=== PATIENT | male | born 1960 | race Caucasian/White ===

== ENCOUNTER 2022-03-03 20:14 | Inpatient (IN) | payer OTHER, SELFPAY ==
[2022-03-03 20:18] VITALS: BP 179/129; PULSE 88; RESP 16; TEMP 36.4; O2SAT 98; BMI 20.7
--- NOTE | 2022-03-03 21:00 | ED.C_ITS ---
Documented by User: Cameron Restrepo DO 03/03/22 22:48 HPI - Psych General: Chief Complaint: Psychiatric Symptoms Stated Complaint: SI Time Seen by Provider: 03/03/22 20:28 Source: patient Mode of arrival: ambulatory Limitations: no limitations History of Present Illness: History of DIPThis patient has made his way to the emergency department because he has had suicidal thoughts. He states that pression and has had suicidal thoughts in the past. 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 He is now had time to do so and has states he has been feeling more sad and uncertain about his role in life and has had thoughts of drowning himself in the bathtub. He does admit to me that he drinks alcohol on a daily basis and his last drink was approximately 4 to 5 hours ago. He states he usually drinks beer. He apparently uses recreational marijuana from time to time. He desires help. MD complaint: suicidal ideation and feels depressed History of same: Yes Context: recent alcohol abuse Associated symptoms: Reports depression and suicidal ideation; Deny auditory hallucinations or visual hallucinations Review of Systems Const: Denies: fever(s) or chills Eyes: Denies: change in vision or blurry vision ENMT: Denies: throat pain, odynophagia, nasal discharge or nasal congestion Card: Denies: chest pain, palpitations or irregular heart rhythm Resp: Denies: productive cough or non-productive cough GI: Denies: abdominal pain, nausea or vomiting : Denies: flank pain, difficulty urinating, dysuria or urinary frequency Musc: Denies: neck pain, back pain, extremity pain or extremity swelling Skin/Breast: Denies: rash Neuro: Denies: headache(s), numbness in extremities or weakness in extremities Psych: Reports: anxiety, depression, loss of interest, change in appetite and suicidal ideation; Denies: visual hallucinations or auditory hallucinations Physical Exam Narrative: EXAM NARRATIVE: Makes good eye contact. Will answer questions in a goal-directed fashion but occasionally needs redirection. Const: COMMON NORMALS: no acute distress, average body habitus, patient oriented x3 and alert GENERAL APPEARANCE: cooperative HENMT: COMMON NORMALS: normocephalic, Normal nasal mucous membranes and turbinates present, moist oral mucous membranes and oropharynx normal HEAD & SCALP: normocephalic NOSE: Normal nasal mucous membranes and turbinates present Eye: COMMON NORMALS: Equal, round and reactive pupils present, EOMs intact bilaterally and conjunctivae normal CONJUNCTIVA: Yes conjunctivae normal PUPIL: Yes Equal, round and reactive pupils present Neck/C-Spine: COMMON NORMALS: full ROM, no JVD and No carotid bruits Chest: COMMONS NORMALS: normal inspection of the chest Resp: COMMON NORMALS: normal respiratory effort, No use of accessory muscles and clear to auscultation bilaterally AUSCULTATION: clear to auscultation bilaterally Cardio: COMMON NORMALS: no JVD, regular rhythm and Peripheral pulses 2+ throughout RHYTHM: regular rhythm PERIPHERAL PULSES: Peripheral pulses 2+ throughout GI: COMMON NORMALS: Normal to inspection, nondistended, normoactive bowel sounds present, Soft to palpation, non-tender and No hepatosplenomegaly present PALPATION: Yes Soft to palpation and Yes No hepatosplenomegaly present : COMMON NORMALS: Yes no CVA tenderness BLADDER/KIDNEY EXAM: Yes no CVA tenderness Back/Pelvis: COMMON NORMALS: no CVA tenderness, thoracic and lumbar spine normal to inspection and thoraco-lumbar ROM normal Extremity: COMMON NORMALS: normal to inspection, full ROM, no calf tenderness and no pedal edema Neuro: COMMON NORMALS: patient oriented x3, moves all extremities, no focal motor deficits and no sensory deficits noted SENSORIUM/ORIENTATION: Yes alert CRANIAL NERVES: Yes CN normal except as noted Psych: COMMON NORMALS: mental status grossly normal, Normal thought process present and speech normal ATTITUDE: Yes calm SPEECH: Yes normal speech MOOD & AFFECT: Yes depressed mood and Yes Flat affect present THOUGHT PROCESS: Normal thought process present THOUGHT CONTENT: Yes Suicidality present ATTENTION/CONCENTRATION: Yes attention grossly intact INSIGHT: Fair insight present (Psych) JUDGEMENT: Fair judgement present (Psych) Skin: COMMON NORMALS: no rashes or lesions noted and no wounds GENERAL SKIN EXAM: no rashes or lesions noted Course Reevaluation(s): Reevaluation #1: Patient remains clinically stable. He seems to be calm without any evidence of shakes, tachycardia etc. particularly after the 50 mg of Librium. I discussed the fact that we do not have bed availability at this facility will have to make arrangements for transfer if possible. He voiced understanding. He remains willing to be admitted for treatment. 's care will be turned over to the overnight emergency department department physician for disposition of possible or continuation of care until we are able to make a transfer. Time: 22:47 Vital Signs: Vital signs: Vital Signs Temperature 97.6 F 03/03/22 20:18 Pulse Rate 88 03/03/22 20:18 Respiratory Rate 16 03/03/22 20:18 Blood Pressure 179/129 03/03/22 20:18 Pulse Oximetry 98 03/03/22 20:18 Oxygen Delivery Me thod 03/03/22 20:18 MDM - Psych Medical Decision Making Patient with a history of depression who presented to our emergency department because he has had suicidal thoughts recently. He has expressed plan of potentially drowning himself in the bathtub. He is here seeking help voluntarily. He does admit to daily alcohol use as well and last drank alcohol several hours prior to arrival. His clinical examination revealed him to have a flat affect and depressed mood with uncertain suicidality but has voiced specific plans. Currently clinically stable. He does have laboratory values which 1 would expect from chronic alcohol use but is not clinically or biochemically intoxicated at this time. Because of his current presentation I think is warranted that he be placed in mental health facility for further evaluation and treatment as indicated. He has denied to me history of DTs, seizures etc. He has been given Librium in the emergency department to help quell some of his symptoms potential withdrawal symptoms. Lab Data I reviewed the patient's lab results. 03/03/22 20:20 03/03/22 20:20 Laboratory Results WBC 10.1 10^3/uL (4.0-10.0) H 03/03/22 20:20 RBC 5.26 10^6/uL (4.1-5.3) 03/03/22 20:20 Hgb 16.4 g/dL (11.7-16.6) 03/03/22 20:20 Hct 48.2 % (42.0-52.0) 03/03/22 20:20 MCV 91.6 fl (80-94) 03/03/22 20:20 MCH 31.2 pg (28.0-34.0) 03/03/22 20:20 MCHC 34.0 g/dL (30.0-36.0) 03/03/22 20:20 RDW 14.2 % (12.1-15.1) 03/03/22 20:20 Plt Count 200 10^3/cmm (130-400) 03/03/22 20:20 MPV 10.1 fL (7.4-10.4) 03/03/22 20:20 Neut % (Auto) 58.3 % 03/03/22 20:20 Lymph % (Auto) 18.6 % 03/03/22 20:20 [place] % (Auto) 16.3 % 03/03/22 20:20 Eos % (Auto) 4.6 % 03/03/22 20:20 Baso % (Auto) 1.3 % 03/03/22 20:20 Neut # (Auto) 5.89 10^3/uL (1.8-7.7) 03/03/22 20:20 Lymph # (Auto) 1.9 10^3/uL (0.8-4.8) 03/03/22 20:20 [place] # (Auto) 1.7 10^3/uL (0.2-0.9) H 03/03/22 20:20 Eos # (Auto) 0.5 10^3/uL (0.0-0.8) 03/03/22 20:20 Baso # (Auto) 0.1 10^3/uL (0.0-0.1) 03/03/22 20:20 Nucleated RBC % (auto) 0 % 03/03/22 20:20 Nucleated RBCs # 0.0 /100WBC 03/03/22 20:20 Sodium 129 mmol/L (136-145) L 03/03/22 20:20 Potassium 4.0 mmol/L (3.5-5.1) 03/03/22 20:20 Chloride 91 mmol/L (98-107) L 03/03/22 20:20 Carbon Dioxide 21 mmol/L (22-29) L 03/03/22 20:20 Anion Gap 21.0 (5-19) H 03/03/22 20:20 BUN 3 mg/dL (8-23) L 03/03/22 20:20 Creatinine 0.7 mg/dL (0.7-1.2) 03/03/22 20:20 GFR Calculation 113.9 mL/min (90-130) 03/03/22 20:20 Glucose 91 mg/dL (65-115) 03/03/22 20:20 Calculated Osmolality 264 mOsm/kg (285-295) L 03/03/22 20:20 Calcium 10.1 mg/dL (8.5-10.5) 03/03/22 20:20 Total Bilirubin 0.8 mg/dL (0.15-1.2) 03/03/22 20:20 AST 156 U/L (0-40) H 03/03/22 20:20 ALT 145 U/L (0-41) H 03/03/22 20:20 Alkaline Phosphatase 80 U/L (40-130) 03/03/22 20:20 Total Protein 8.4 g/dL (6.6-8.7) 03/03/22 20:20 Albumin 4.8 g/dL (3.5-5.2) 03/03/22 20:20 Globulin 3.6 g/dL (1.3-4.6) 03/03/22 20:20 Salicylates < 0.3 mg/dL (3-10) L 03/03/22 20:20 Acetaminophen < 5.0 ug/mL (10-30) L 03/03/22 20:20 Ethyl Alcohol 25 mg/dL (0-10) H 03/03/22 20:20 Influenza Type A Ag negative (Negative) 03/03/22 22:47 Influenza Type B Ag negative (Negative) 03/03/22 22:47 SARS-CoV-2 Ag (Rapid) Negative (Negative) 03/03/22 22:47 Discharge Plan Discharge Patient Disposition: Admitted As Inpatient Clinical Impression: Suicidal ideation, Depression, Chronic alcohol use Condition: Stable Referrals: Jorden Cloud [Primary Care Provider] - Coding Level of Care Code ED Cryptozoologist for Chg Fwd Exam Comprehensive Documented by User: Maria Antonia Schulte MD 03/04/22 04:41 HPI - Psych General: Chief Complaint: Psychiatric Symptoms Stated Complaint: SI Time Seen by Provider: 03/03/22 20:28 Course Vital Signs: Vital signs: Vital Signs Temperature 97.6 F 03/03/22 20:18 Pulse Rate 88 03/03/22 20:18 Respiratory Rate 16 03/03/22 20:18 Blood Pressure 179/129 03/03/22 20:18 Pulse Oximetry 98 03/03/22 20:18 Oxygen Delivery Me thod 03/03/22 20:18 MDM - Psych Medical Decision Making Patient with a history of depression who presented to our emergency department because he has had suicidal thoughts recently. He has expressed plan of potentially drowning himself in the bathtub. He is here seeking help voluntarily. He does admit to daily alcohol use as well and last drank alcohol several hours prior to arrival. His clinical examination revealed him to have a flat affect and depressed mood with uncertain suicidality but has voiced specific plans. Currently clinically stable. He does have laboratory values which 1 would expect from chronic alcohol use but is not clinically or biochemically intoxicated at this time. Because of his current presentation I think is warranted that he be placed in mental health facility for further evaluation and treatment as indicated. He has denied to me history of DTs, seizures etc. He has been given Librium in the emergency department to help quell some of his symptoms potential withdrawal symptoms. Patient presents for suicidal ideations he is medically cleared he had no withdrawal symptoms here I did speak to Dr. Mcdonald and will admit at this time to the psych unit. Lab Data 03/03/22 20:20 03/03/22 20:20 Laboratory Results WBC 10.1 10^3/uL (4.0-10.0) H 03/03/22 20:20 RBC 5.26 10^6/uL (4.1-5.3) 03/03/22 20:20 Hgb 16.4 g/dL (11.7-16.6) 03/03/22 20:20 Hct 48.2 % (42.0-52.0) 03/03/22 20:20 MCV 91.6 fl (80-94) 03/03/22 20:20 MCH 31.2 pg (28.0-34.0) 03/03/22 20:20 MCHC 34.0 g/dL (30.0-36.0) 03/03/22 20:20 RDW 14.2 % (12.1-15.1) 03/03/22 20:20 Plt Count 200 10^3/cmm (130-400) 03/03/22 20:20 MPV 10.1 fL (7.4-10.4) 03/03/22 20:20 Neut % (Auto) 58.3 % 03/03/22 20:20 Lymph % (Auto) 18.6 % 03/03/22 20:20 [place] % (Auto) 16.3 % 03/03/22 20:20 Eos % (Auto) 4.6 % 03/03/22 20:20 Baso % (Auto) 1.3 % 03/03/22 20:20 Neut # (Auto) 5.89 10^3/uL (1.8-7.7) 03/03/22 20:20 Lymph # (Auto) 1.9 10^3/uL (0.8-4.8) 03/03/22 20:20 [place] # (Auto) 1.7 10^3/uL (0.2-0.9) H 03/03/22 20:20 Eos # (Auto) 0.5 10^3/uL (0.0-0.8) 03/03/22 20:20 Baso # (Auto) 0.1 10^3/uL (0.0-0.1) 03/03/22 20:20 Nucleated RBC % (auto) 0 % 03/03/22 20:20 Nucleated RBCs # 0.0 /100WBC 03/03/22 20:20 Sodium 129 mmol/L (136-145) L 03/03/22 20:20 Potassium 4.0 mmol/L (3.5-5.1) 03/03/22 20:20 Chloride 91 mmol/L (98-107) L 03/03/22 20:20 Carbon Dioxide 21 mmol/L (22-29) L 03/03/22 20:20 Anion Gap 21.0 (5-19) H 03/03/22 20:20 BUN 3 mg/dL (8-23) L 03/03/22 20:20 Creatinine 0.7 mg/dL (0.7-1.2) 03/03/22 20:20 GFR Calculation 113.9 mL/min (90-130) 03/03/22 20:20 Glucose 91 mg/dL (65-115) 03/03/22 20:20 Calculated Osmolality 264 mOsm/kg (285-295) L 03/03/22 20:20 Calcium 10.1 mg/dL (8.5-10.5) 03/03/22 20:20 Total Bilirubin 0.8 mg/dL (0.15-1.2) 03/03/22 20:20 AST 156 U/L (0-40) H 03/03/22 20:20 ALT 145 U/L (0-41) H 03/03/22 20:20 Alkaline Phosphatase 80 U/L (40-130) 03/03/22 20:20 Total Protein 8.4 g/dL (6.6-8.7) 03/03/22 20:20 Albumin 4.8 g/dL (3.5-5.2) 03/03/22 20:20 Globulin 3.6 g/dL (1.3-4.6) 03/03/22 20:20 Salicylates < 0.3 mg/dL (3-10) L 03/03/22 20:20 Acetaminophen < 5.0 ug/mL (10-30) L 03/03/22 20:20 Ethyl Alcohol 25 mg/dL (0-10) H 03/03/22 20:20 Influenza Type A Ag negative (Negative) 03/03/22 22:47 Influenza Type B Ag negative (Negative) 03/03/22 22:47 SARS-CoV-2 Ag (Rapid) Negative (Negative) 03/03/22 22:47 Discharge Plan Discharge Patient Disposition: Admitted As Inpatient Clinical Impression: Suicidal ideation, Depression, Chronic alcohol use Condition: Stable Referrals: Jorden Cloud [Primary Care Provider] - Coding Level of Care Code ED Cryptozoologist for [place] Fwd Exam Comprehensive
[2022-03-03] MEDS: chlordiazePOXIDE 25 mg Capsule 50 MG PO (21:07)
--- NOTE | 2022-03-03 21:07 | ECG_ITS ---
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 Measurements Intervals [place] Rate: 79 P: 84 ME: 163 QRS: 75 QRSD: 87 T: 78 QT: 374 QTc: 430 Interpretive Statements SINUS RHYTHM Compared to ECG 09/10/2016 14:08:34 No significant changes Electronically Signed On 03-04-2022 13:14:21 FINAL EXPENSE AGENT by Gretchen Valdez M.D. [id number]
[2022-03-03 21:08] LABS: Basophils # 0.1 10^3/uL (0.0-0.1); Basophils % 1.3 %; Eosinophils # 0.5 10^3/uL (0.0-0.8); Eosinophils % 4.6 %; Hematocrit 48.2 % (42.0-52.0); Hemoglobin 16.4 g/dL (11.7-16.6); Lymphocytes # 1.9 10^3/uL (0.8-4.8); Lymphocytes % 18.6 %; Mean Corpuscular Hemoglobin 31.2 pg (28.0-34.0); Mean Corpuscular Volume 91.6 fl (80-94); Mean Platelet Volume 10.1 fL (7.4-10.4); Monocytes # 1.7 10^3/uL (0.2-0.9); Monocytes % 16.3 %; Neutrophils # 5.89 10^3/uL (1.8-7.7); Neutrophils % 58.3 %; Nucleated Red Blood Cells % 0 %; Platelet Count 200 10^3/cmm (130-400); Red Blood Count 5.26 10^6/uL (4.1-5.3); Red Cell Distribution Width 14.2 % (12.1-15.1); White Blood Count 10.1 10^3/uL (4.0-10.0)
[2022-03-03 21:18] LABS: Alanine Aminotransferase 145 U/L (0-41); Albumin Level 4.8 g/dL (3.5-5.2); Alcohol Level 25 mg/dL (0-10); Alkaline Phosphatase 80 U/L (40-130); Aspartate Amino Transferase 156 U/L (0-40); Blood Urea Nitrogen 3 mg/dL (8-23); Calcium 10.1 mg/dL (8.5-10.5); Carbon Dioxide 21 mmol/L (22-29); Chloride 91 mmol/L (98-107); Creatinine Clr Calc Pharmacy 103.6157; Globulin 3.6 g/dL (1.3-4.6); Glomerular Filtration Rate 113.9 mL/min (90-130); Glucose 91 mg/dL (65-115); Osmolality Calculated 264 mOsm/kg (285-295); Sodium 129 mmol/L (136-145); Total Bilirubin 0.8 mg/dL (0.15-1.2); Total Protein 8.4 g/dL (6.6-8.7)
[2022-03-03 21:19] LABS: Acetaminophen < 5.0 ug/mL (10-30); Salicylate < 0.3 mg/dL (3-10)
[2022-03-03 23:10] LABS: Influenza A by IFA negative (Negative); Influenza B by IFA negative (Negative)
[2022-03-03 23:40] LABS: SARS Covid-2 Antigen Negative (Negative)
[2022-03-04] MEDS: LORazepam 2 mg Tablet PO ×3 (04:50→21:10)
[2022-03-04 04:53] VITALS: BP 152/96; PULSE 86; RESP 16; O2SAT 97
--- NOTE | 2022-03-04 06:54 | PC.NURSE ---
Per Liliana Brush they cannot accept for at least 72 hours due to pt hx of alcoholism and potential for detox issues
[2022-03-04] MEDS: thiamine 100 mg Tablet PO (08:36)
[2022-03-04] MEDS: multivitamin therapeutic Tablet 1 TAB PO (08:36)
[2022-03-04] MEDS: folic acid 1 mg Tablet PO (08:37)
[2022-03-04 08:39] VITALS: PULSE 111; RESP 16; O2SAT 99
--- NOTE | 2022-03-04 10:09 | PC.PHAR ---
PT NOT SURE OF ALL HIS MEDICATIONS- MEDICATIONS VERIF[facility]- ALLERGIES AL[facility]
[2022-03-04 11:57] VITALS: BP 144/113; PULSE 115; RESP 16; TEMP 36.8; O2SAT 98
[2022-03-04 13:45] VITALS: BP 144/113; PULSE 115; RESP 16; TEMP 36.8; O2SAT 98
[2022-03-04 20:05] VITALS: BP 129/80; PULSE 124; RESP 19; TEMP 36.7; O2SAT 97
[2022-03-05 06:00] VITALS: RESP 17
[2022-03-05] MEDS: BuSPIRONE 10 mg Tablet 30 MG PO ×2 (08:52→18:32)
[2022-03-05] MEDS: pantoprazole DR 40 mg Tablet PO (08:52)
[2022-03-05] MEDS: thiamine 100 mg Tablet PO (08:52)
[2022-03-05] MEDS: venlafaxine ER (24HR) 150 mg Capsule PO (08:52)
[2022-03-05] MEDS: propranolol 40 mg Tablet 120 MG PO ×2 (08:53→18:32)
[2022-03-05] MEDS: cetirizine 10 mg Tablet PO (08:53)
[2022-03-05] MEDS: fluticasone nasal spray 16gm Btl 1 SPRAY NASAL (08:53)
[2022-03-05] MEDS: multivitamin therapeutic Tablet 1 TAB PO (08:53)
[2022-03-05] MEDS: folic acid 1 mg Tablet PO (08:53)
[2022-03-05] MEDS: ondansetron 4 MG Tablet PO (08:55)
[2022-03-05] MEDS: LORazepam 2 mg Tablet PO ×2 (08:55→20:53)
[2022-03-05] MEDS: calcium carb-vit d 600mg/400unit 1 Tablet 1 EACH PO (09:22)
[2022-03-05] MEDS: nicotine 21 mg Patch 1 PATCH TRANSDERMA ×2 (09:32→13:22)
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
--- NOTE | 2022-03-05 13:23 | PC.NURSE ---
PRN Nicotine Patch 21mg Nicotine patch administered a second time today due to the first falling off of patient's arm. Placed on opposite arm.
[2022-03-05 14:00] VITALS: BP 128/80; PULSE 81; RESP 17; TEMP 37; O2SAT 96
[2022-03-05 21:25] VITALS: BP 124/87; PULSE 85; RESP 18; TEMP 36.8; O2SAT 98
[2022-03-06] MEDS: LORazepam 2 mg/mL INJ 1 mL IM (00:18)
[2022-03-06] MEDS: acetaminophen 325 mg Tablet 650 MG PO (00:18)
[2022-03-06] MEDS: ondansetron 4 MG Tablet PO ×4 (00:18→23:52)
--- NOTE | 2022-03-06 00:21 | PC.NURSE ---
Patient in obvious ETOH withdraw Very anxious and fearful. CIWA score of 23 conservatively. 2mg IM Ativan given.
[2022-03-06 06:00] VITALS: RESP 18; BMI 20.7
[2022-03-06] MEDS: folic acid 1 mg Tablet PO (08:56)
[2022-03-06] MEDS: calcium carb-vit d 600mg/400unit 1 Tablet 1 EACH PO (08:56)
[2022-03-06] MEDS: cetirizine 10 mg Tablet PO (08:56)
[2022-03-06] MEDS: BuSPIRONE 10 mg Tablet 30 MG PO ×2 (08:56→18:44)
[2022-03-06] MEDS: venlafaxine ER (24HR) 150 mg Capsule PO (08:57)
[2022-03-06] MEDS: propranolol 40 mg Tablet 120 MG PO ×2 (08:57→18:44)
[2022-03-06] MEDS: multivitamin therapeutic Tablet 1 TAB PO (08:57)
[2022-03-06] MEDS: pantoprazole DR 40 mg Tablet PO (08:57)
[2022-03-06] MEDS: thiamine 100 mg Tablet PO (08:57)
[2022-03-06] MEDS: LORazepam 2 mg Tablet PO ×4 (08:58→23:52)
--- NOTE | 2022-03-06 09:03 | PC.NURSE ---
PRN Churn Driller Patient approaching nurses' station obviously distraught. Patient sweating, shaking, voice breaking when he's talking, and stating he has almost vomited this morning and can't eat any food. Patient given 2 mg ativan PO and 4 mg zofran PO.
--- NOTE | 2022-03-06 13:15 | W.PM.NPUPNS ---
Subjective NPU Subjective: Patient presented today reporting that he is feeling nauseous. He reports that this nausea has been present for the past 3 months or so. We discussed his aftercare. He reports that [facility] is not [facility] to the [facility] though he is [facility] connected, reporting that that will not help because they will not give me anything. We once again reviewed the fact that with his alcohol consumption getting someone to consider prescribing a benzodiazepine to a 61-year-old is very unlikely and not clinically appropriate. He reports that he does feel like he has detoxed during the stay and is feeling a little more stable. He continues to be resistant to alternative medications that are not in the benzodiazepine class. Mental Status Exam MSE Comments: This is a well nourished, well developed white male in hospital scrubs with limited grooming and eye contact. No abnormal movements except for psychomotor retardation. Looking older than stated age. Cooperative with exam in mild to moderate distress. Speech was slightly decreased rate and normal volume. Mood described as okay, affect is slightly subdued. Thought process, organized. Thought content: patient denies suicidal or homicidal ideation but made suicidal statements at the end of the interview, no delusions reported or noted and denies any auditory or visual hallucinations. Attention and concentration are intact and memory appeared mostly reliable but none were formally tested. He is alert and oriented times three. Insight and judgment are limited. Impulse control is limited. Vitals/I&O/Wt Last Vital Signs Temp 98.2 F 03/05/22 21:25 Pulse 85 03/05/22 21:25 Resp 18 03/06/22 06:00 BP 124/87 03/05/22 21:25 Pulse Ox 98 03/05/22 21:25 O2 Del Method 03/04/22 14:15 Weight last 48 hrs Weight 63.503 kg Data NPU 03/03/22 20:20 03/03/22 20:20 A&P Assessment and plan (1) Suicidal ideation: (2) Generalized anxiety disorder with panic attacks: (3) Depression: (4) Alcohol use disorder, severe, dependence: Plan This is a 61 year old white man with a significant history of trauma, nightmares, familial loss and suicide attempts and psychiatric hospitalizations who presents reporting he is currently drinking 8 to 12 beers a day as his anxiety is high and he is using it to self medicate, endorsing if he isn?t put on a benzodiazepine he will commit suicide. 1. Continue current medications. Continue to recommend nonhabit-forming medications for anxiety. 2. Encourage individual, group and milieu therapy 3. Continue q-15 minute check for safety 4. Recommend sober living treatment at the highest level of care to which the patient is willing to commit. We will work with treatment team in the morning on VA versus non-VA related referrals. Involuntary Hold Information 96 Hour Hold: 96 Hour Involuntary Admission: No Attestations NPU Medical Necessity Statement*: Inpatient hospitalization is medically necessary and the clinically appropriate intervention at this time. We will monitor medications and make changes as indicated. Likely length of stay is 2-4 days. 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
[2022-03-06 14:00] VITALS: BP 109/72; PULSE 69; RESP 16; TEMP 36.6; O2SAT 99
[2022-03-06] MEDS: nicotine 21 mg Patch 1 PATCH TRANSDERMA (15:06)
--- NOTE | 2022-03-06 16:27 | PC.NURSE ---
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 Patient stated he has been having a consistent headache. Patient scored at a 24 on CIWA. Given 2 mg ativan PO per protocol.
--- NOTE | 2022-03-06 18:42 | PC.NURSE ---
PATIENT BEHAVIORS: Patient coming back to the nurses' desk constantly and rambling about different subjects that aren't connected. He started off stating that the Bushs and Clintons needed to be killed and that 12/05 was a conspiracy. Patient stated the NSA was watching him and that he got to hang out in space. He also believes he has been around for a long time and that reincarnation is real and that another patient in the neuropsych unit was brought back from the specifically for him. Patient then walked to the dayroom, screamed once, then walked back to the nurses' station. When he got back he said, those child molesting motherfuckers took my and she didn't know about it. When asked what made him think that he could not explain it and quickly changed topics. Patient continued to exhibit flight of ideas and disorganized thoughts.
[2022-03-06 19:54] VITALS: BP 111/71; PULSE 65; RESP 16; TEMP 36.5; O2SAT 99
[2022-03-06] MEDS: hyDROXYzine 25 mg Capsule 50 MG PO (20:09)
[2022-03-07] MEDS: acetaminophen 325 mg Tablet 650 MG PO (03:38)
[2022-03-07] MEDS: LORazepam 2 mg Tablet PO ×3 (03:39→20:04)
[2022-03-07] MEDS: ondansetron 4 MG Tablet PO ×2 (03:39→20:04)
[2022-03-07 05:50] VITALS: BP 124/79; PULSE 72; RESP 16; TEMP 36.7; O2SAT 99
[2022-03-07] MEDS: BuSPIRONE 10 mg Tablet 30 MG PO ×2 (08:40→18:28)
[2022-03-07] MEDS: calcium carb-vit d 600mg/400unit 1 Tablet 1 EACH PO (08:40)
[2022-03-07] MEDS: multivitamin therapeutic Tablet 1 TAB PO (08:41)
[2022-03-07] MEDS: thiamine 100 mg Tablet PO (08:41)
[2022-03-07] MEDS: folic acid 1 mg Tablet PO (08:41)
[2022-03-07] MEDS: cetirizine 10 mg Tablet PO (08:41)
[2022-03-07] MEDS: propranolol 40 mg Tablet 120 MG PO ×2 (08:43→18:28)
[2022-03-07] MEDS: pantoprazole DR 40 mg Tablet PO (08:43)
[2022-03-07] MEDS: venlafaxine ER (24HR) 150 mg Capsule PO (08:43)
[2022-03-07] MEDS: nicotine 21 mg Patch 1 PATCH TRANSDERMA (09:09)
[2022-03-07 14:00] VITALS: BP 106/72; PULSE 73; RESP 17; TEMP 36.6; O2SAT 98
--- NOTE | 2022-03-07 19:16 | W.PM.NPUPNS ---
Subjective NPU Subjective: Patient presented today reporting that his BuSpar is not being effective. We discussed the fact that for issues of his age as well as his drinking that benzodiazepines are a bad long-term solution. We discussed the possibility of Neurontin which he had not heard of. And after discussion of the risks, benefits and alternatives he understood and agreed to proceed as is documented in this note. He continues to endorse significant anxiety. Mental Status Exam MSE Comments: This is a well nourished, well developed white male in hospital scrubs with limited grooming and eye contact. No abnormal movements except for psychomotor retardation. Looking older than stated age. Cooperative with exam in mild to moderate distress. Speech was slightly decreased rate and normal volume. Mood described as still anxious, affect is slightly subdued. Thought process, organized. Thought content: patient denies suicidal or homicidal ideation but continues to allude to possible suicidality if his anxiety is not managed, no delusions reported or noted and denies any auditory or visual hallucinations. Attention and concentration are intact and memory appeared mostly reliable but none were formally tested. He is alert and oriented times three. Insight and judgment are limited. Impulse control is limited. Vitals/I&O/Wt Last Vital Signs Temp 98.1 F 03/07/22 19:39 Pulse 81 03/07/22 19:39 Resp 16 03/07/22 19:39 BP 116/76 03/07/22 19:39 Pulse Ox 97 03/07/22 19:39 O2 Del Method 03/04/22 14:15 Data NPU 03/03/22 20:20 03/03/22 20:20 A&P Assessment and plan (1) Suicidal ideation: (2) Generalized anxiety disorder with panic attacks: (3) Depression: (4) Alcohol use disorder, severe, dependence: Plan This is a 61 year old white man with a significant history of trauma, nightmares, familial loss and suicide attempts and psychiatric hospitalizations who presents reporting he is currently drinking 8 to 12 beers a day as his anxiety is high and he is using it to self medicate, endorsing if he isn?t put on a benzodiazepine he will commit suicide. 1. Continue current medications. Initiate Neurontin 100 mg p.o. 3 times daily for anxiety 2. Encourage individual, group and milieu therapy 3. Continue q-15 minute check for safety 4. Recommend sober living treatment at the highest level of care to which the patient is willing to commit. We will work with treatment team in the morning on VA versus non-VA related referrals. Involuntary Hold Information 96 Hour Hold: 96 Hour Involuntary Admission: No Attestations NPU Medical Necessity Statement*: Inpatient hospitalization is medically necessary and the clinically appropriate intervention at this time. We will monitor medications and make changes as indicated. Likely length of stay is 1-3 days. 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
[2022-03-07 19:39] VITALS: BP 116/76; PULSE 81; RESP 16; TEMP 36.7; O2SAT 97
[2022-03-07] MEDS: trazodone 50 mg Tablet PO (21:06)
[2022-03-08] MEDS: trazodone 50 mg Tablet PO ×3 (00:46→21:36)
[2022-03-08] MEDS: hyDROXYzine 25 mg Capsule 50 MG PO (00:46)
[2022-03-08 06:00] VITALS: BP 103/70; PULSE 83; RESP 16; TEMP 36.8; O2SAT 99
[2022-03-08] MEDS: nicotine 21 mg Patch 1 PATCH TRANSDERMA (08:38)
[2022-03-08] MEDS: calcium carb-vit d 600mg/400unit 1 Tablet 1 EACH PO (08:39)
[2022-03-08] MEDS: multivitamin therapeutic Tablet 1 TAB PO (08:39)
[2022-03-08] MEDS: cetirizine 10 mg Tablet PO (08:39)
[2022-03-08] MEDS: folic acid 1 mg Tablet PO (08:39)
[2022-03-08] MEDS: pantoprazole DR 40 mg Tablet PO (08:39)
[2022-03-08] MEDS: thiamine 100 mg Tablet PO (08:39)
[2022-03-08] MEDS: BuSPIRONE 10 mg Tablet 30 MG PO ×2 (08:39→18:14)
[2022-03-08] MEDS: venlafaxine ER (24HR) 150 mg Capsule PO (08:41)
[2022-03-08] MEDS: gabapentin 100 mg Capsule PO ×3 (08:41→21:22)
--- NOTE | 2022-03-08 08:45 | PC.NURSE ---
Round Boner: Held propranolol 120 mg this morning due to patient's vitals. His blood pressure was low at 117/83.
--- NOTE | 2022-03-08 08:59 | PC.NURSE ---
Patient denies AH/VH and HI. He denies SI and states he doesn't think about suicide in here because he feels safer. Patient did endorse depression and anxiety at a 7/10. He also said he had a headache at a 6/10. He said his appetite has been increasing since he has gotten here.
--- NOTE | 2022-03-08 12:07 | PC.NURSE ---
Patient became angry that another patient changed the channel on the tv and stated, you guys better keep him away from me! Attempted to verbally de-escalate patient, which appeared to be successful as patient later apologized for his actions and is now sitting in the dayroom, calmly watching tv.
[2022-03-08 14:00] VITALS: BP 121/68; PULSE 86; RESP 17; TEMP 36.7; O2SAT 98
--- NOTE | 2022-03-08 14:49 | W.PM.NPUPNS ---
Subjective NPU Subjective: Patient presented today reporting that he is doing okay. He denies any side effects from the Neurontin. He reports he was able to eat today without any issue which was an improvement and denies any problems related to the changes. He had previously been reporting nausea regularly. Mental Status Exam MSE Comments: This is a well nourished, well developed white male in hospital scrubs with limited grooming and eye contact. No abnormal movements except for psychomotor retardation. Looking older than stated age. Cooperative with exam in mild distress. Speech was slightly decreased rate and normal volume. Mood described as medial better, affect is slightly subdued. Thought process, organized. Thought content: patient denies suicidal or homicidal ideation but continues to allude to possible suicidality if his anxiety is not managed, no delusions reported or noted and denies any auditory or visual hallucinations. Attention and concentration are intact and memory appeared mostly reliable but none were formally tested. He is alert and oriented times three. Insight and judgment are limited. Impulse control is limited. Vitals/I&O/Wt Last Vital Signs Temp 98.3 F 03/08/22 06:00 Pulse 83 03/08/22 06:00 Resp 16 03/08/22 06:00 BP 103/70 03/08/22 06:00 Pulse Ox 99 03/08/22 06:00 O2 Del Method 03/04/22 14:15 Data NPU 03/03/22 20:20 03/03/22 20:20 A&P Assessment and plan (1) Suicidal ideation: (2) Generalized anxiety disorder with panic attacks: (3) Depression: (4) Alcohol use disorder, severe, dependence: Plan This is a 61 year old white man with a significant history of trauma, nightmares, familial loss and suicide attempts and psychiatric hospitalizations who presents reporting he is currently drinking 8 to 12 beers a day as his anxiety is high and he is using it to self medicate, endorsing if he isn?t put on a benzodiazepine he will commit suicide. 1. Continue current medications. Initiated Neurontin 100 mg p.o. 3 times daily for anxiety 2. Encourage individual, group and milieu therapy 3. Continue q-15 minute check for safety 4. Recommend sober living treatment at the highest level of care to which the patient is willing to commit. We will work with treatment team in the morning on VA versus non-VA related referrals. Involuntary Hold Information 96 Hour Hold: 96 Hour Involuntary Admission: No Attestations NPU Medical Necessity Statement*: Inpatient hospitalization is medically necessary and the clinically appropriate intervention at this time. We will monitor medications and make changes as indicated. Likely length of stay is 1-3 days. 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
[2022-03-08] MEDS: propranolol 40 mg Tablet 120 MG PO (18:14)
[2022-03-08] MEDS: fluticasone nasal spray 16gm Btl 1 SPRAY NASAL (18:15)
[2022-03-08 20:42] VITALS: BP 118/78; PULSE 80; RESP 16; TEMP 36.7; O2SAT 95
[2022-03-09 06:00] VITALS: BP 101/70; PULSE 90; RESP 17; TEMP 36.6; O2SAT 98
[2022-03-09] MEDS: fluticasone nasal spray 16gm Btl 1 SPRAY NASAL (08:47)
[2022-03-09] MEDS: folic acid 1 mg Tablet PO (08:48)
[2022-03-09] MEDS: thiamine 100 mg Tablet PO (08:48)
[2022-03-09] MEDS: propranolol 40 mg Tablet 120 MG PO ×2 (08:48→18:09)
[2022-03-09] MEDS: multivitamin therapeutic Tablet 1 TAB PO (08:48)
[2022-03-09] MEDS: venlafaxine ER (24HR) 150 mg Capsule PO (08:48)
[2022-03-09] MEDS: pantoprazole DR 40 mg Tablet PO (08:48)
[2022-03-09] MEDS: BuSPIRONE 10 mg Tablet 30 MG PO ×2 (08:48→18:09)
[2022-03-09] MEDS: gabapentin 100 mg Capsule PO ×3 (08:48→20:26)
[2022-03-09] MEDS: cetirizine 10 mg Tablet PO (08:49)
[2022-03-09] MEDS: calcium carb-vit d 600mg/400unit 1 Tablet 1 EACH PO (08:49)
[2022-03-09] MEDS: acetaminophen 325 mg Tablet 650 MG PO (10:13)
[2022-03-09] MEDS: nicotine 21 mg Patch 1 PATCH TRANSDERMA (12:20)
[2022-03-09 14:00] VITALS: BP 111/63; PULSE 75; RESP 18; TEMP 36.7; O2SAT 96
[2022-03-09] MEDS: hyDROXYzine 25 mg Capsule 50 MG PO (14:17)
--- NOTE | 2022-03-09 15:11 | W.PM.NPUPNS ---
Subjective NPU Subjective: Patient presented today reporting that he does feel better since the initiation of the Neurontin. We continue to discuss his psychosocial situation and we discussed the possibility of discharge in the next 48 hours with a likely increase in the Neurontin tomorrow after discussion of the risks, benefits and alternatives he understood and agreed to proceed as is documented in this note. He struggled in the conversation about abstinence or making a real attempt to discontinue his drinking noting that he only drinks beer. Mental Status Exam MSE Comments: This is a well nourished, well developed white male in hospital scrubs with limited grooming and eye contact. No abnormal movements except for mild but resolving psychomotor retardation. Looking older than stated age. Cooperative with exam in no acute distress. Speech was slightly decreased rate and normal volume. Mood described as better, affect is congruent. Thought process, organized. Thought content: patient denies suicidal or homicidal ideation, no delusions reported or noted and denies any auditory or visual hallucinations. Attention and concentration are intact and memory appeared mostly reliable but none were formally tested. He is alert and oriented times three. Insight and judgment are limited. Impulse control is limited. Vitals/I&O/Wt Last Vital Signs Temp 97.8 F 03/09/22 06:00 Pulse 90 03/09/22 06:00 Resp 17 03/09/22 06:00 BP 101/70 03/09/22 06:00 Pulse Ox 98 03/09/22 06:00 O2 Del Method 03/09/22 06:00 Data NPU 03/03/22 20:20 03/03/22 20:20 A&P Assessment and plan (1) Suicidal ideation: (2) Generalized anxiety disorder with panic attacks: (3) Depression: (4) Alcohol use disorder, severe, dependence: Plan This is a 61 year old white man with a significant history of trauma, nightmares, familial loss and suicide attempts and psychiatric hospitalizations who presents reporting he is currently drinking 8 to 12 beers a day as his anxiety is high and he is using it to self medicate, endorsing if he isn?t put on a benzodiazepine he will commit suicide. 1. Continue current medications. Initiated Neurontin 100 mg p.o. 3 times daily for anxiety. Likely increase to 200 mg p.o. 3 times daily tomorrow. 2. Encourage individual, group and milieu therapy 3. Continue q-15 minute check for safety 4. Recommend sober living treatment at the highest level of care to which the patient is willing to commit. We will work with treatment team in the morning on VA versus non-VA related referrals. Involuntary Hold Information 96 Hour Hold: 96 Hour Involuntary Admission: No Attestations NPU Medical Necessity Statement*: Inpatient hospitalization is medically necessary and the clinically appropriate intervention at this time. We will monitor medications and make changes as indicated. Likely length of stay is 1-2 days. Coding Level of Care Code Acute Studio Manager for [facility] Fwd Diagnoses Suicidal ideation R45.851 Generalized anxiety disorder with panic attacks F41.1; F41.0 Depression F32.A Alcohol use disorder, severe, dependence F10.20
[2022-03-09] MEDS: OLANZapine 5 mg ODT PO (18:23)
[2022-03-09 20:00] VITALS: BP 126/78; PULSE 75; RESP 16; TEMP 36.7; O2SAT 98
[2022-03-09] MEDS: trazodone 50 mg Tablet PO (20:26)
[2022-03-10 06:00] VITALS: RESP 18
[2022-03-10] MEDS: propranolol 40 mg Tablet 120 MG PO ×2 (08:54→17:38)
[2022-03-10] MEDS: BuSPIRONE 10 mg Tablet 30 MG PO ×2 (08:54→17:38)
[2022-03-10] MEDS: cetirizine 10 mg Tablet PO (08:55)
[2022-03-10] MEDS: pantoprazole DR 40 mg Tablet PO (08:55)
[2022-03-10] MEDS: thiamine 100 mg Tablet PO (08:55)
[2022-03-10] MEDS: docusate sodium 100 mg Capsule PO (08:55)
[2022-03-10] MEDS: gabapentin 100 mg Capsule 200 MG PO ×3 (08:55→19:50)
[2022-03-10] MEDS: multivitamin therapeutic Tablet 1 TAB PO (08:55)
[2022-03-10] MEDS: nicotine 21 mg Patch 1 PATCH TRANSDERMA (08:55)
[2022-03-10] MEDS: venlafaxine ER (24HR) 150 mg Capsule PO (08:55)
[2022-03-10] MEDS: calcium carb-vit d 600mg/400unit 1 Tablet 1 EACH PO (08:55)
[2022-03-10] MEDS: folic acid 1 mg Tablet PO (08:55)
[2022-03-10] MEDS: LORazepam 2 mg Tablet PO ×2 (09:36→19:49)
[2022-03-10] MEDS: fluticasone nasal spray 16gm Btl 1 SPRAY NASAL ×2 (09:42→18:10)
[2022-03-10 14:00] VITALS: BP 111/75; PULSE 83; RESP 20; TEMP 36.6; O2SAT 99
[2022-03-10] MEDS: magnesium hydroxide 30 mL UDC PO (14:02)
--- NOTE | 2022-03-10 17:23 | W.PM.NPUPNS ---
Subjective NPU Subjective: Patient presented today reporting that he is feeling better. We discussed the risks, benefits and alternatives of increasing the Neurontin to 200 mg p.o. 3 times daily and he understood and agreed to proceed as is documented in this note. We discussed him working with the treatment team to arrange transportation with a plan for discharge tomorrow. He continued to be elusive about recovery and struggled to identify the impact that drinking was having on his anxiety and the vicious cycle that been created on the drinking anxiety continuum Mental Status Exam MSE Comments: This is a well nourished, well developed white male in hospital scrubs with limited grooming and eye contact. No abnormal movements except for mild but resolving psychomotor retardation. Looking older than stated age. Cooperative with exam in no acute distress. Speech was slightly decreased rate and normal volume. Mood described as better, affect is congruent. Thought process, organized. Thought content: patient denies suicidal or homicidal ideation, no delusions reported or noted and denies any auditory or visual hallucinations. Attention and concentration are intact and memory appeared mostly reliable but none were formally tested. He is alert and oriented times three. Insight and judgment are limited. Impulse control is limited. Vitals/I&O/Wt Last Vital Signs Temp 97.8 F 03/10/22 19:37 Pulse 79 03/10/22 19:37 Resp 17 03/10/22 19:37 BP 123/76 03/10/22 19:37 Pulse Ox 99 03/10/22 19:37 O2 Del Method 03/09/22 06:00 Data NPU 03/03/22 20:20 03/03/22 20:20 A&P Assessment and plan (1) Suicidal ideation: (2) Generalized anxiety disorder with panic attacks: (3) Depression: (4) Alcohol use disorder, severe, dependence: Plan This is a 61 year old white man with a significant history of trauma, nightmares, familial loss and suicide attempts and psychiatric hospitalizations who presents reporting he is currently drinking 8 to 12 beers a day as his anxiety is high and he is using it to self medicate, endorsing if he isn?t put on a benzodiazepine he will commit suicide. 1. Continue current medications. Initiated Neurontin 100 mg p.o. 3 times daily for anxiety. Increase to 200 mg p.o. 3 times daily. 2. Encourage individual, group and milieu therapy 3. Continue q-15 minute check for safety 4. Recommend sober living treatment at the highest level of care to which the patient is willing to commit. We will work with treatment team on appropriate referrals. Involuntary Hold Information 96 Hour Hold: 96 Hour Involuntary Admission: No Attestations NPU Medical Necessity Statement*: Inpatient hospitalization is medically necessary and the clinically appropriate intervention at this time. We will monitor medications and make changes as indicated. Tentative plan for discharge tomorrow. 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
[2022-03-10 19:37] VITALS: BP 123/76; PULSE 79; RESP 17; TEMP 36.6; O2SAT 99
[2022-03-10] MEDS: trazodone 50 mg Tablet PO (19:49)
[2022-03-11 06:00] VITALS: RESP 18
[2022-03-11 08:22] LABS: Glucose Point of Care 199 mg/dL (70-110)
[2022-03-11] MEDS: venlafaxine ER (24HR) 150 mg Capsule PO (08:49)
[2022-03-11] MEDS: multivitamin therapeutic Tablet 1 TAB PO (08:49)
[2022-03-11] MEDS: propranolol 40 mg Tablet 120 MG PO (08:50)
[2022-03-11] MEDS: thiamine 100 mg Tablet PO (08:50)
[2022-03-11] MEDS: folic acid 1 mg Tablet PO (08:50)
[2022-03-11] MEDS: BuSPIRONE 10 mg Tablet 30 MG PO (08:50)
[2022-03-11] MEDS: gabapentin 100 mg Capsule 200 MG PO (08:50)
[2022-03-11] MEDS: nicotine 21 mg Patch 1 PATCH TRANSDERMA (08:50)
[2022-03-11] MEDS: pantoprazole DR 40 mg Tablet PO (08:50)
[2022-03-11] MEDS: cetirizine 10 mg Tablet PO (08:50)
[2022-03-11] MEDS: calcium carb-vit d 600mg/400unit 1 Tablet 1 EACH PO (08:52)
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
[2022-03-11 11:17] VITALS: BP 123/76; PULSE 79; RESP 18; TEMP 36.6; O2SAT 99
== END 2022-03-11 13:26 | disposition home or self-care (01) | DRG 881 ==
LOC: ER 03-04 04:41 → NP 03-04 12:57
PROVIDERS: Emergency Medicine; Admitting Provider Psychiatry & Neurology Psychiatry; Emergency Provider Emergency Medicine; PCP Family Medicine; Visit Provider Psychiatry & Neurology Psychiatry
DX: F32.A Depression, unspecified (principal); R45.851 Suicidal ideations; F41.1 Generalized anxiety disorder; F41.0 Panic disorder [episodic paroxysmal anxiety]; F10.20 Alcohol dependence, uncomplicated; Z79.51 Long term (current) use of inhaled steroids; F12.90 Cannabis use, unspecified, uncomplicated; F17.220 Nicotine dependence, chewing tobacco, uncomplicated; Z91.041 Radiographic dye allergy status; Z85.118 Personal history of other malignant neoplasm of bronchus and lung; Z90.2 Acquired absence of lung [part of]
CPT/HCPCS: 36416; 80053; 80307; 82962; 85025; 87426; 87804; 90471; 90686; 93005; 96372; 97165; 99285; J2060; J3411; Q0162

== ENCOUNTER 2022-08-25 02:31 | Inpatient (IN) | payer OTHER, SELFPAY ==
--- NOTE | 2022-08-25 02:37 | W.ED.PSYCHS ---
Documented by User: Nishant Monk MD 09/06/22 11:23 HPI - Psych General: Chief Complaint: Psychiatric Symptoms Stated Complaint: SI Time Seen by Provider: 08/25/22 02:37 History of Present Illness: Mr. Carvalho is a 62-year-old gentleman with history of anxiety with panic attacks, depression, alcohol abuse presented to the emergency department for suicidal ideation. He notes worsening depression and isolation as well as not eating over the past few weeks. He has had increasing thoughts of suicide and [id number] anxiety. He is no longer taking his medications for psychiatric symptoms. He notes weight loss. Overall intensity symptoms has worsened. Moderate to severe in intensity currently. Has had similar episodes in the past. Prior episodes of self starving have apparently ended with him in the ICU. No other specific changes in health, exacerbating, or alleviating factors identified. Onset (ago): week(s) Duration: getting worse History of same: Yes Context: not taking psychiatric medications and significant life stressor Associated symptoms: Reports depression, suicidal ideation and racing thoughts If self harm: admits thoughts of self harm and other Review of Systems General: Reports: 10 or more systems reviewed and unremarkable except in HPI and below Psych: Reports: depression and suicidal ideation Physical Exam Const: COMMON NORMALS: alert GENERAL APPEARANCE: cooperative and well developed HENMT: COMMON NORMALS: normocephalic and atraumatic HEAD & SCALP: normocephalic and atraumatic Eye: COMMON NORMALS: conjunctivae normal CONJUNCTIVA: Yes conjunctivae normal SCLERA: sclerae normal Neck/C-Spine: COMMON NORMALS: supple GENERAL: Yes trachea midline Resp: COMMON NORMALS: normal respiratory effort EFFORT & INSPECTION: Yes able to speak in complete sentences Cardio: COMMON NORMALS: regular rate and regular rhythm RATE: regular rate RHYTHM: regular rhythm GI: COMMON NORMALS: Soft to palpation PALPATION: Yes Soft to palpation and No Tenderness to palpation present (GI) Extremity: GENERAL: Yes normal exam except as noted and No edema Neuro: COMMON NORMALS: moves all extremities SENSORIUM/ORIENTATION: Yes alert and No Orientation impaired Psych: COMMON NORMALS: mental status grossly normal and Normal thought process present APPEARANCE: Yes disheveled MOOD & AFFECT: Yes depressed mood THOUGHT PROCESS: Normal thought process present INSIGHT: Fair insight present (Psych) JUDGEMENT: Poor judgement present (Psych) Course Vital Signs: Vital signs: Vital Signs Temperature 98.4 F 06/06/23 14:00 Pulse Rate 78 08/30/22 14:24 Respiratory Rate 20 H 08/30/22 14:00 Blood Pressure 112/75 08/30/22 14:00 Pulse Oximetry 98 08/30/22 14:00 Oxygen Delivery Me thod Room Air 08/30/22 08:49 [facility] - Psych Medical Decision Making 62-year-old gentleman presenting with worsening anxiety, depression, psychiatric disorder. He is calm and cooperative on exam. He is nontoxic. Labs demonstrate no significant hematologic abnormalities. Metabolic panel with mild hyponatremia and transaminitis likely secondary to chronic alcohol abuse. TSH is normal. Urine drug screen and toxic ingestions are negative with the exception of positive THC and elevated ethyl alcohol level. Urinalysis is normal. COVID negative. Given physical exam and clinical history provided there is no indication for imaging at this time. Based on ED evaluation at this point there is no obvious condition that would preclude the patient from inpatient management of psychiatric concerns/symptoms. We do not currently have bed available at their facility for adult psych and therefore we will look for placement. Medical Records I reviewed the patient's medical records. Lab Data I reviewed the patient's lab results. 08/25/22 02:54 08/25/22 02:54 Laboratory Results WBC 9.7 10^3/uL (4.0-10.0) 08/25/22 02:54 RBC 4.47 10^6/uL (4.1-5.3) 08/25/22 02:54 Hgb 13.7 g/dL (11.7-16.6) 08/25/22 02:54 Hct 41.0 % (42.0-52.0) L 08/25/22 02:54 MCV 91.7 fl (80-94) 08/25/22 02:54 MCH 30.6 pg (28.0-34.0) 08/25/22 02:54 MCHC 33.4 g/dL (30.0-36.0) 08/25/22 02:54 RDW 13.7 % (12.1-15.1) 08/25/22 02:54 Plt Count 316 10^3/cmm (130-400) 08/25/22 02:54 MPV 8.6 fL (7.4-10.4) 08/25/22 02:54 Neut % (Auto) 53.9 % 08/25/22 02:54 Lymph % (Auto) 25.5 % 08/25/22 02:54 [place] % (Auto) 13.6 % 08/25/22 02:54 Eos % (Auto) 4.0 % 08/25/22 02:54 Baso % (Auto) 1.2 % 08/25/22 02:54 Neut # (Auto) 5.23 10^3/uL (1.8-7.7) 08/25/22 02:54 Lymph # (Auto) 2.5 10^3/uL (0.8-4.8) 08/25/22 02:54 [place] # (Auto) 1.3 10^3/uL (0.2-0.9) H 08/25/22 02:54 Eos # (Auto) 0.4 10^3/uL (0.0-0.8) 08/25/22 02:54 Baso # (Auto) 0.1 10^3/uL (0.0-0.1) 08/25/22 02:54 Nucleated RBC % (auto) 0 % 08/25/22 02:54 Nucleated RBCs # 0.0 /100WBC 08/25/22 02:54 Sodium 131 mmol/L (136-145) L 08/25/22 02:54 Potassium 4.2 mmol/L (3.5-5.1) 08/25/22 02:54 Chloride 95 mmol/L (98-107) L 08/25/22 02:54 Carbon Dioxide 24 mmol/L (22-29) 08/25/22 02:54 Anion Gap 16.2 (5-19) 08/25/22 02:54 BUN 3 mg/dL (8-23) L 08/25/22 02:54 Creatinine 0.6 mg/dL (0.7-1.2) L 08/25/22 02:54 GFR Calculation 135.6 mL/min (90-130) H 08/25/22 02:54 Glucose 85 mg/dL (65-115) 08/25/22 02:54 Calculated Osmolality 268 mOsm/kg (285-295) L 08/25/22 02:54 Calcium 8.6 mg/dL (8.5-10.5) 08/25/22 02:54 Total Bilirubin 0.4 mg/dL (0.15-1.2) 08/25/22 02:54 AST 82 U/L (0-40) H 08/25/22 02:54 ALT 71 U/L (0-41) H 08/25/22 02:54 Alkaline Phosphatase 90 U/L (40-130) 08/25/22 02:54 Total Protein 7.5 g/dL (6.6-8.7) 08/25/22 02:54 Albumin 3.5 g/dL (3.5-5.2) 08/25/22 02:54 Globulin 4.0 g/dL (1.3-4.6) 08/25/22 02:54 TSH 1.26 uIU/mL (0.27-4.20) 08/25/22 02:54 Urine Color Yellow (Yellow) 08/25/22 02:54 Urine Appearance Clear (CLEAR) 08/25/22 02:54 Urine pH 7 (5-7) 08/25/22 02:54 Ur Specific [place] 1.010 (1.005-1.030) 08/25/22 02:54 Urine Protein Neg (Negative) 08/25/22 02:54 Urine Glucose (UA) Norm (Normal) 08/25/22 02:54 Urine Ketones Negative (Negative) 08/25/22 02:54 Urine Blood Neg (Negative) 08/25/22 02:54 Urine Nitrate Negative (Negative) 08/25/22 02:54 Urine Bilirubin Neg (Negative) 08/25/22 02:54 Urine Urobilinogen Neg mg/dL (Negative) 08/25/22 02:54 Ur Leukocyte Esterase Negative (Negative) 08/25/22 02:54 Salicylates 1.3 mg/dL (3-10) L 08/25/22 02:54 Urine Opiates Screen Negative ng/mL (Negative) 08/25/22 02:54 Acetaminophen < 5.0 ug/mL (10-30) L 08/25/22 02:54 Ur Barbiturates Screen Negative ng/mL (Negative) 08/25/22 02:54 Ur Phencyclidine Scrn Negative ng/mL (Negative) 08/25/22 02:54 Ur Amphetamines Screen Negative ng/mL (Negative) 08/25/22 02:54 U Benzodiazepines Scrn Negative ng/mL (Negative) 08/25/22 02:54 Urine Cocaine Screen Negative ng/mL (Negative) 08/25/22 02:54 U Marijuana (THC) Screen Positive ng/mL (Negative) H 08/25/22 02:54 Ethyl Alcohol 206 mg/dL (0-10) H 08/25/22 06:44 SARS-CoV-2 Ag (Rapid) negative (Negative) 08/25/22 03:00 Discharge Plan Discharge Patient Disposition: Admitted As Inpatient Admit Provider: Walker Mcdonald Clinical Impression: Depression, Chronic alcohol use, Chronic schizophrenia Condition: Stable Discharge Diet: Advance as tolerated Discharge Activity: Resume usual activity Coding Level of Care Code ED Api Product Manager for Chg Fwd Documented by User: Maria Antonia Schulte MD 08/25/22 07:50 HPI - Psych General: Chief Complaint: Psychiatric Symptoms Stated Complaint: SI Time Seen by Provider: 08/25/22 02:37 Course Vital Signs: Vital signs: Vital Signs Temperature 98.4 F 08/30/22 14:00 Pulse Rate 78 08/30/22 14:24 Respiratory Rate 20 H 08/30/22 14:00 Blood Pressure 112/75 08/30/22 14:00 Pulse Oximetry 98 08/30/22 14:00 Oxygen Delivery Me thod Room Air 08/30/22 08:49 MDM - Psych Medical Decision Making 62-year-old gentleman presenting with worsening anxiety, depression, psychiatric disorder. He is calm and cooperative on exam. He is nontoxic. Labs demonstrate no significant hematologic abnormalities. Metabolic panel with mild hyponatremia and transaminitis likely secondary to chronic alcohol abuse. TSH is normal. Urine drug screen and toxic ingestions are negative with the exception of positive THC and elevated ethyl alcohol level. Urinalysis is normal. COVID negative. Given physical exam and clinical history provided there is no indication for imaging at this time. Based on ED evaluation at this point there is no obvious condition that would preclude the patient from inpatient management of psychiatric concerns/symptoms. We do not currently have bed available at their facility for adult psych and therefore we will look for placement. Patient's ALK levels came down I did reassess him he still having hallucinations states his mind just does not feel right he has been taking his meds for his schizophrenia we will place him under [address] I did speak to Dr. Mcdonald who will have discharges today and will admit at this time. Lab Data 08/25/22 02:54 08/25/22 02:54 Laboratory Results WBC 9.7 10^3/uL (4.0-10.0) 08/25/22 02:54 RBC 4.47 10^6/uL (4.1-5.3) 08/25/22 02:54 Hgb 13.7 g/dL (11.7-16.6) 08/25/22 02:54 Hct 41.0 % (42.0-52.0) L 08/25/22 02:54 MCV 91.7 fl (80-94) 08/25/22 02:54 MCH 30.6 pg (28.0-34.0) 08/25/22 02:54 MCHC 33.4 g/dL (30.0-36.0) 08/25/22 02:54 RDW 13.7 % (12.1-15.1) 08/25/22 02:54 Plt Count 316 10^3/cmm (130-400) 08/25/22 02:54 MPV 8.6 fL (7.4-10.4) 08/25/22 02:54 Neut % (Auto) 53.9 % 08/25/22 02:54 Lymph % (Auto) 25.5 % 08/25/22 02:54 [place] % (Auto) 13.6 % 08/25/22 02:54 Eos % (Auto) 4.0 % 08/25/22 02:54 Baso % (Auto) 1.2 % 08/25/22 02:54 Neut # (Auto) 5.23 10^3/uL (1.8-7.7) 08/25/22 02:54 Lymph # (Auto) 2.5 10^3/uL (0.8-4.8) 08/25/22 02:54 [place] # (Auto) 1.3 10^3/uL (0.2-0.9) H 08/25/22 02:54 Eos # (Auto) 0.4 10^3/uL (0.0-0.8) 08/25/22 02:54 Baso # (Auto) 0.1 10^3/uL (0.0-0.1) 08/25/22 02:54 Nucleated RBC % (auto) 0 % 08/25/22 02:54 Nucleated RBCs # 0.0 /100WBC 08/25/22 02:54 Sodium 131 mmol/L (136-145) L 08/25/22 02:54 Potassium 4.2 mmol/L (3.5-5.1) 08/25/22 02:54 Chloride 95 mmol/L (98-107) L 08/25/22 02:54 Carbon Dioxide 24 mmol/L (22-29) 08/25/22 02:54 Anion Gap 16.2 (5-19) 08/25/22 02:54 BUN 3 mg/dL (8-23) L 08/25/22 02:54 Creatinine 0.6 mg/dL (0.7-1.2) L 08/25/22 02:54 GFR Calculation 135.6 mL/min (90-130) H 08/25/22 02:54 Glucose 85 mg/dL (65-115) 08/25/22 02:54 Calculated Osmolality 268 mOsm/kg (285-295) L 08/25/22 02:54 Calcium 8.6 mg/dL (8.5-10.5) 08/25/22 02:54 Total Bilirubin 0.4 mg/dL (0.15-1.2) 08/25/22 02:54 AST 82 U/L (0-40) H 08/25/22 02:54 ALT 71 U/L (0-41) H 08/25/22 02:54 Alkaline Phosphatase 90 U/L (40-130) 08/25/22 02:54 Total Protein 7.5 g/dL (6.6-8.7) 08/25/22 02:54 Albumin 3.5 g/dL (3.5-5.2) 08/25/22 02:54 Globulin 4.0 g/dL (1.3-4.6) 08/25/22 02:54 TSH 1.26 uIU/mL (0.27-4.20) 08/25/22 02:54 Urine Color Yellow (Yellow) 08/25/22 02:54 Urine Appearance Clear (CLEAR) 08/25/22 02:54 Urine pH 7 (5-7) 08/25/22 02:54 Ur Specific [place] 1.010 (1.005-1.030) 08/25/22 02:54 Urine Protein Neg (Negative) 08/25/22 02:54 Urine Glucose (UA) Norm (Normal) 08/25/22 02:54 Urine Ketones Negative (Negative) 08/25/22 02:54 Urine Blood Neg (Negative) 08/25/22 02:54 Urine Nitrate Negative (Negative) 08/25/22 02:54 Urine Bilirubin Neg (Negative) 08/25/22 02:54 Urine Urobilinogen Neg mg/dL (Negative) 08/25/22 02:54 Ur Leukocyte Esterase Negative (Negative) 08/25/22 02:54 Salicylates 1.3 mg/dL (3-10) L 08/25/22 02:54 Urine Opiates Screen Negative ng/mL (Negative) 08/25/22 02:54 Acetaminophen < 5.0 ug/mL (10-30) L 08/25/22 02:54 Ur Barbiturates Screen Negative ng/mL (Negative) 08/25/22 02:54 Ur Phencyclidine Scrn Negative ng/mL (Negative) 08/25/22 02:54 Ur Amphetamines Screen Negative ng/mL (Negative) 08/25/22 02:54 U Benzodiazepines Scrn Negative ng/mL (Negative) 08/25/22 02:54 Urine Cocaine Screen Negative ng/mL (Negative) 08/25/22 02:54 U Marijuana (THC) Screen Positive ng/mL (Negative) H 08/25/22 02:54 Ethyl Alcohol 206 mg/dL (0-10) H 08/25/22 06:44 SARS-CoV-2 Ag (Rapid) negative (Negative) 08/25/22 03:00 Discharge Plan Discharge Patient Disposition: Admitted As Inpatient Admit Provider: Walker Mcdonald Clinical Impression: Depression, Chronic alcohol use, Chronic schizophrenia Condition: Stable Discharge Diet: Advance as tolerated Discharge Activity: Resume usual activity Coding Level of Care Code ED Api Product Manager for [facility]
[2022-08-25 02:39] VITALS: BP 138/80; PULSE 68; RESP 16; TEMP 36.2; O2SAT 98; BMI 22.1
--- NOTE | 2022-08-25 02:48 | ECG_ITS ---
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 Measurements Intervals [place] Rate: 61 P: -5 DC: 169 QRS: 73 QRSD: 88 T: 77 QT: 435 QTc: 440 Interpretive Statements SINUS RHYTHM Compared to ECG 03/03/2022 21:14:19 No significant changes Electronically Signed On 08-25-2022 17:37:15 CDT by Ariel Walter M.D. [email or web address] centerB[id number]
[2022-08-25 02:59] LABS: Basophils # 0.1 10^3/uL (0.0-0.1); Basophils % 1.2 %; Eosinophils # 0.4 10^3/uL (0.0-0.8); Hemoglobin 13.7 g/dL (11.7-16.6); Lymphocytes # 2.5 10^3/uL (0.8-4.8); Lymphocytes % 25.5 %; Mean Corpuscular HGB Conc 33.4 g/dL (30.0-36.0); Mean Corpuscular Hemoglobin 30.6 pg (28.0-34.0); Mean Corpuscular Volume 91.7 fl (80-94); Mean Platelet Volume 8.6 fL (7.4-10.4); Monocytes # 1.3 10^3/uL (0.2-0.9); Monocytes % 13.6 %; Neutrophils # 5.23 10^3/uL (1.8-7.7); Neutrophils % 53.9 %; Nucleated Red Blood Cells % 0 %; Platelet Count 316 10^3/cmm (130-400); Red Blood Count 4.47 10^6/uL (4.1-5.3); Red Cell Distribution Width 13.7 % (12.1-15.1); White Blood Count 9.7 10^3/uL (4.0-10.0)
[2022-08-25 03:06] LABS: Add Urine Microscopic? NO; Charge for UA Resulting for Rev
[2022-08-25 03:11] LABS: Bilirubin Urine Neg (Negative); Blood Urine Neg (Negative); Glucose Urine UA Norm (Normal); Ketones Urine Negative (Negative); Leukocyte Esterase Urine Negative (Negative); Nitrate Urine Negative (Negative); Protein Urine Neg (Negative); Urine Appearance Clear (CLEAR); Urine Color Yellow (Yellow); Urobilinogen Urine Neg (Negative); pH Urine 7 (5-7)
[2022-08-25 03:17] LABS: Amphetamines Screen Urine Negative (Negative); Barbiturates Screen Urine Negative (Negative); Benzodiazepines Screen Urine Negative (Negative); Cocaine Screen Urine Negative (Negative); Opiate Screen Urine Negative (Negative); PCP Screen Urine Negative (Negative); THC Screen Urine Positive (Negative)
[2022-08-25 03:28] LABS: SARS Covid-2 Antigen negative (Negative)
[2022-08-25 03:28] LABS: Alanine Aminotransferase 71 U/L (0-41); Albumin Level 3.5 g/dL (3.5-5.2); Alkaline Phosphatase 90 U/L (40-130); Anion Gap 16.2 (5-19); Aspartate Amino Transferase 82 U/L (0-40); Blood Urea Nitrogen 3 mg/dL (8-23); Calcium 8.6 mg/dL (8.5-10.5); Carbon Dioxide 24 mmol/L (22-29); Chloride 95 mmol/L (98-107); Glomerular Filtration Rate 135.6 mL/min (90-130); Glucose 85 mg/dL (65-115); Osmolality Calculated 268 mOsm/kg (285-295); Potassium 4.2 mmol/L (3.5-5.1); Salicylate 1.3 mg/dL (3-10); Sodium 131 mmol/L (136-145); Thyroid Stimulating Hormone 1.26 uIU/mL (0.27-4.20); Total Bilirubin 0.4 mg/dL (0.15-1.2); Total Protein 7.5 g/dL (6.6-8.7)
[2022-08-25 03:40] LABS: Acetaminophen < 5.0 ug/mL (10-30)
[2022-08-25 03:41] LABS: Alcohol Level 308 mg/dL (0-10)
[2022-08-25 04:04] VITALS: BP 132/78; PULSE 97; RESP 16; O2SAT 97
[2022-08-25 06:49] VITALS: BP 118/74; PULSE 80; RESP 16; O2SAT 98
[2022-08-25 07:11] LABS: Alcohol Level 206 mg/dL (0-10)
--- NOTE | 2022-08-25 08:24 | PC.NURSE ---
96 hour hold rights read and reviewed with patient. Patient verbalized understandings and copy of rights left at the bedside with patient.
[2022-08-25] MEDS: folic acid 1 mg Tablet PO (09:47)
[2022-08-25] MEDS: thiamine 100 mg Tablet PO (09:47)
[2022-08-25] MEDS: multivitamin therapeutic Tablet 1 TAB PO (09:47)
[2022-08-25 13:41] VITALS: BP 131/82; PULSE 86; RESP 18; TEMP 36.7; O2SAT 97
[2022-08-25 14:00] VITALS: BP 124/86; PULSE 102; RESP 20; TEMP 36.7; O2SAT 96
[2022-08-25] MEDS: ondansetron 4 MG Tablet PO (15:42)
[2022-08-25] MEDS: LORazepam 2 mg Tablet PO (15:42)
--- NOTE | 2022-08-25 18:09 | PC.NURSE ---
PT PRESENTED TO THE ED WITH THOUGHTS OF SUICIDE, SEVERE DEPRESSION, NOT EATING. PT REPORTS THAT THIS HAS BEEN GOING ON FOR ABOUT A MONTH. PT REPORTS THAT HE HAS BEEN IN THE ICU BEFORE FOR NOT EATING. PT ALSO STATES THAT HE HAS A HISTORY OF SUICIDE ATTEMPT BY OVERDOSE. PT REPORTS DAILY ALCOHOL USE AND IS IN ACTIVE WITHDRAWAL.
[2022-08-25 22:20] VITALS: RESP 15
[2022-08-26 06:00] VITALS: RESP 16
[2022-08-26] MEDS: LORazepam 2 mg Tablet PO ×5 (06:35→21:12)
[2022-08-26] MEDS: folic acid 1 mg Tablet PO (08:26)
[2022-08-26] MEDS: multivitamin therapeutic Tablet 1 TAB PO (08:26)
[2022-08-26] MEDS: thiamine 100 mg Tablet PO (08:26)
--- NOTE | 2022-08-26 08:54 | PC.NURSE ---
Ativan 2m PO given to patient for CIWA of 14, per protocol. Will continue to monitor patient.
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
[2022-08-26 14:00] VITALS: BP 134/86; PULSE 115; RESP 18; TEMP 36.8; O2SAT 95
[2022-08-26] MEDS: chlorhexidine gluconate 0.12% UDC 15 mL MUCOUS MEM (17:05)
[2022-08-26] MEDS: BuSPIRONE 10 mg Tablet 30 MG PO (17:17)
--- NOTE | 2022-08-26 17:25 | PC.NURSE ---
Propranolol not administered to patient because BP 97/72.
[2022-08-26 17:41] VITALS: O2SAT 95
[2022-08-26] MEDS: nicotine 2 mg Gum BUCCAL (19:23)
[2022-08-26 20:16] VITALS: BP 99/70; PULSE 133; RESP 20; TEMP 36.4; O2SAT 96
[2022-08-26] MEDS: gabapentin 100 mg Capsule 200 MG PO (21:12)
[2022-08-26] MEDS: budesonide 0.5 mg/2 mL Neb INHALATION (21:54)
[2022-08-26 21:55] VITALS: PULSE 131; RESP 20; O2SAT 95
[2022-08-27 06:32] VITALS: RESP 16
--- NOTE | 2022-08-27 06:40 | W.PM.NPUPNS ---
Subjective NPU Subjective: Patient presented today reporting that he is feeling better. However he continues to be quite tremulous and at 1 point during the interview he was trying to drink some lemonade without sitting up. He was quite shaky and there was a fly in his drink. He was spilling it on the bed and almost drank the fly until I took it from him. Mental Status Exam MSE Comments: This is an underweight white male in hospital scrubs with limited grooming and eye contact. No abnormal movements except for psychomotor retardation and significant tremulousness especially with intentional movements. Looking older than stated age. Cooperative with exam in mild to moderate distress. Speech was slightly decreased rate and normal volume. Mood described as better, affect is slightly subdued. Thought process, organized. Thought content: patient endorses suicidal but denied homicidal ideations, no delusions reported or noted and denies any auditory or visual hallucinations. Attention and concentration are intact and memory appeared somewhat reliable but none were formally tested. He is alert and oriented times three. Insight and judgment are limited. Impulse control is impaired. Vitals/I&O/Wt Last Vital Signs Temp 97.6 F 08/26/22 20:16 Pulse 131 H 08/26/22 21:55 Resp 16 08/27/22 06:32 BP 99/70 08/26/22 20:16 Pulse Ox 95 08/26/22 21:55 O2 Del Method Room Air 08/26/22 21:55 Data NPU 08/25/22 02:54 08/25/22 02:54 A&P Assessment and plan (1) Suicidal ideation: (2) Generalized anxiety disorder with panic attacks: (3) Depression: (4) Alcohol use disorder, severe, dependence: Plan This is a 62 year old white man with a significant history of trauma, nightmares, familial loss and suicide attempts and psychiatric hospitalizations who presents again with similar concerns as his 2021 hospitalization with relapse on alcohol and suicidal thoughts. 1. Continue current medications 2. Encourage individual, group and milieu therapy 3. Continue q-15 minute check for safety 4. Recommend sober living treatment at the highest level of care to which the patient is willing to commit. Involuntary Hold Information 96 Hour Hold: 96 Hour Involuntary Admission: Yes 96 Hour Hold Ending Date: 08/31/22 96 Hour Hold Ending Time: 07:00 Attestations NPU Medical Necessity Statement*: Inpatient hospitalization is medically necessary and the clinically appropriate intervention at this time. We will monitor medications and make changes as indicated. Likely length of stay is 3-5 days. Coding Level of Care Code Acute Code for g Fwd Diagnoses Suicidal ideation R45.851 Generalized anxiety disorder with panic attacks F41.1; F41.0 Depression F32.A Alcohol use disorder, severe, dependence F10.20
[2022-08-27 08:00] VITALS: PULSE 109; RESP 18; O2SAT 98
[2022-08-27] MEDS: LORazepam 2 mg Tablet PO ×3 (09:31→20:51)
--- NOTE | 2022-08-27 09:31 | PC.NURSE ---
ativan 2mg PO given to patient for CIWA of 11. will continue to monitor.
[2022-08-27] MEDS: zinc oxide oint 30 gm 1 APPLIC TOPICAL (09:32)
[2022-08-27] MEDS: gabapentin 100 mg Capsule 200 MG PO ×3 (09:32→20:50)
[2022-08-27] MEDS: multivitamin therapeutic Tablet 1 TAB PO (09:32)
[2022-08-27] MEDS: calcium carb-vit d 600mg/400unit 1 Tablet 1 EACH PO (09:32)
[2022-08-27] MEDS: chlorhexidine gluconate 0.12% UDC 15 mL MUCOUS MEM ×2 (09:32→18:43)
[2022-08-27] MEDS: venlafaxine ER (24HR) 150 mg Capsule PO (09:32)
[2022-08-27] MEDS: BuSPIRONE 10 mg Tablet 30 MG PO ×2 (09:32→17:07)
[2022-08-27] MEDS: pantoprazole DR 40 mg Tablet PO (09:32)
[2022-08-27] MEDS: thiamine 100 mg Tablet PO (09:32)
[2022-08-27] MEDS: folic acid 1 mg Tablet PO (09:32)
[2022-08-27] MEDS: benztropine 1 mg Tablet PO (09:57)
[2022-08-27 14:00] VITALS: BP 78/58; PULSE 161; RESP 18; O2SAT 98
--- NOTE | 2022-08-27 16:40 | PC.NURSE ---
Patient scored 10 on CiWA. administered 2mg Ativan to patient, per protocol. VS: BP: 104/72 DE 129 RR 16 o2 sat RA: 97%
[2022-08-27] MEDS: nicotine 2 mg Gum BUCCAL (19:00)
[2022-08-27 20:00] VITALS: PULSE 110; RESP 18; O2SAT 99
[2022-08-27 20:47] VITALS: BP 96/58; PULSE 132; RESP 18; TEMP 36.7; O2SAT 96
[2022-08-27] MEDS: budesonide 0.5 mg/2 mL Neb INHALATION (21:02)
[2022-08-28] MEDS: LORazepam 2 mg Tablet PO ×3 (02:04→16:41)
[2022-08-28 06:00] VITALS: BP 110/70; PULSE 103; RESP 18; TEMP 36.7; O2SAT 97
[2022-08-28 08:19] VITALS: PULSE 124; RESP 18; O2SAT 97
[2022-08-28] MEDS: budesonide 0.5 mg/2 mL Neb INHALATION ×2 (08:20→21:07)
[2022-08-28] MEDS: zinc oxide oint 30 gm 1 APPLIC TOPICAL ×2 (08:26→20:31)
[2022-08-28] MEDS: chlorhexidine gluconate 0.12% UDC 15 mL MUCOUS MEM (08:26)
[2022-08-28] MEDS: BuSPIRONE 10 mg Tablet 30 MG PO ×2 (08:28→17:58)
[2022-08-28] MEDS: multivitamin therapeutic Tablet 1 TAB PO (08:28)
[2022-08-28] MEDS: gabapentin 100 mg Capsule 200 MG PO ×3 (08:28→20:30)
[2022-08-28] MEDS: pantoprazole DR 40 mg Tablet PO (08:28)
[2022-08-28] MEDS: venlafaxine ER (24HR) 150 mg Capsule PO (08:28)
[2022-08-28] MEDS: thiamine 100 mg Tablet PO (08:28)
[2022-08-28] MEDS: calcium carb-vit d 600mg/400unit 1 Tablet 1 EACH PO (08:28)
[2022-08-28] MEDS: folic acid 1 mg Tablet PO (08:28)
--- NOTE | 2022-08-28 08:42 | PC.NURSE ---
ATIVAN 2MG PO ADMINISTERED TO PATIENT FOR CIWA OF 10.
[2022-08-28] MEDS: nicotine 21 mg Patch 1 PATCH TRANSDERMA (08:51)
[2022-08-28 13:49] VITALS: BP 118/80; PULSE 100; RESP 17; TEMP 36.6; O2SAT 97
--- NOTE | 2022-08-28 14:17 | W.PM.NPUPNS ---
Subjective NPU Subjective: Since his 62-year-old white male with a history of trauma nightmares and multiple psychiatric hospitalizations along with depression admitted with suicidal ideation and depression. He had continue to endorse depressed mood. He had reported having consumed 6-8 beers regularly for several years. He states that he did not wish to stop drinking at this time. He did state that he needed Ativan to help with withdrawal seizures. He reported considerable anxiety and reported having depressed mood for several months. Mental Status Exam MSE Comments: This is an underweight white male in hospital scrubs with limited grooming and eye contact. There was evidence of psychomotor retardation and significant tremulousness especially with intentional movements. Looking older than stated age. Cooperative with exam in mild to moderate distress. Speech was slightly decreased rate and decreased volume with normal prosody. Mood described as all right., affect appeared flat. Thought process was linear and organized. Thought content: patient denies suicidal or homicidal ideation. There were no delusions reported or noted and denies any auditory or visual hallucinations. Attention and concentration are intact and memory appeared somewhat reliable but none were formally tested. He is alert and oriented times three. Insight and judgment are limited. Impulse control is impaired. Vitals/I&O/Wt Last Vital Signs Temp 97.8 F 08/28/22 13:49 Pulse 100 08/28/22 13:49 Resp 17 08/28/22 13:49 BP 118/80 08/28/22 13:49 Pulse Ox 97 08/28/22 13:49 O2 Del Method Room Air 08/28/22 08:19 Weight last 48 hrs Weight 69.581 kg Data NPU 08/25/22 02:54 08/25/22 02:54 A&P Assessment and plan (1) Suicidal ideation: (2) Generalized anxiety disorder with panic attacks: (3) Depression: (4) Alcohol use disorder, severe, dependence: Plan This is a 62 year old white man with a significant history of trauma, nightmares, familial loss and suicide attempts and psychiatric hospitalizations who presents again with similar concerns as his 2021 hospitalization with relapse on alcohol and suicidal thoughts. 1. Continue Buspar, Gabapentin, and Effexor XR as prescribed. 2. Encourage individual, group and milieu therapy 3. Continue q-15 minute check for safety 4. Recommend sober living treatment at the highest level of care to which the patient is willing to commit. 5. Continue CIWA protocol-monitor for alcohol withdrawal symptoms. Involuntary Hold Information 96 Hour Hold: 96 Hour Involuntary Admission: Yes 96 Hour Hold Ending Date: 08/31/22 96 Hour Hold Ending Time: 07:00 Attestations NPU Medical Necessity Statement*: Inpatient hospitalization is medically necessary and the clinically appropriate intervention at this time. We will monitor medications and make changes as indicated. Likely length of stay is 3-5 days. Coding Level of Care Code Acute Code for [facility] Fwd Diagnoses Suicidal ideation R45.851 Generalized anxiety disorder with panic attacks F41.1; F41.0 Depression F32.A Alcohol use disorder, severe, dependence F10.20
--- NOTE | 2022-08-28 16:41 | PC.NURSE ---
Ativan 2mg PO given to patient for CIWA score of 10. Will continue to monitor patient
[2022-08-28 20:00] VITALS: PULSE 110; RESP 18; O2SAT 98
[2022-08-28] MEDS: propranolol 40 mg Tablet 120 MG PO (20:32)
[2022-08-28 22:00] VITALS: BP 133/86; PULSE 120; RESP 18; TEMP 36.7; O2SAT 96
[2022-08-28] MEDS: trazodone 50 mg Tablet PO (22:33)
[2022-08-29 06:00] VITALS: BP 99/64; PULSE 82; RESP 18; TEMP 36.3; O2SAT 97
[2022-08-29] MEDS: gabapentin 100 mg Capsule 200 MG PO ×3 (08:53→20:45)
[2022-08-29] MEDS: thiamine 100 mg Tablet PO (08:53)
[2022-08-29] MEDS: propranolol 40 mg Tablet 120 MG PO (08:53)
[2022-08-29] MEDS: venlafaxine ER (24HR) 150 mg Capsule PO (08:54)
[2022-08-29] MEDS: chlorhexidine gluconate 0.12% UDC 15 mL MUCOUS MEM ×2 (08:54→20:45)
[2022-08-29] MEDS: BuSPIRONE 10 mg Tablet 30 MG PO ×2 (08:54→20:45)
[2022-08-29] MEDS: calcium carb-vit d 600mg/400unit 1 Tablet 1 EACH PO (08:54)
[2022-08-29] MEDS: multivitamin therapeutic Tablet 1 TAB PO (08:54)
[2022-08-29] MEDS: folic acid 1 mg Tablet PO (08:54)
[2022-08-29] MEDS: pantoprazole DR 40 mg Tablet PO (08:54)
[2022-08-29] MEDS: budesonide 0.5 mg/2 mL Neb INHALATION ×2 (09:04→21:05)
[2022-08-29 09:06] VITALS: PULSE 101; O2SAT 96
[2022-08-29 14:00] VITALS: BP 90/58; PULSE 71; RESP 16; TEMP 36.7; O2SAT 96
[2022-08-29] MEDS: nicotine 2 mg Gum BUCCAL ×3 (15:05→19:38)
--- NOTE | 2022-08-29 19:23 | P.NPUPN_ITS ---
Subjective NPU Subjective: Since his 62-year-old white male with a history of trauma, nightmares, and multiple psychiatric hospitalizations along with depression admitted with suicidal ideation and depression along with alcohol dependence. He reported no desire to stop the use of alcohol. He had reported that he continued to struggle with depression and stated that he was agreeable to consideration for an antidepressant increase in his Effexor. He had been more social on the milieu. He was able to attend groups. He reported no feelings of hopelessness today. He had reported no desire to consider sobriety despite adverse consequences noted. Mental Status Exam MSE Comments: This is an underweight white male in hospital scrubs with limited grooming and eye contact. There was evidence of psychomotor retardation and significant tremulousness especially with intentional movements. He appeared older than stated age. Cooperative with exam in mild to moderate distress. Speech was slightly decreased in rate and decreased volume with normal prosody. Mood described as okay., affect appeared restricted in range and mood incongruent. Thought process was linear and organized. Thought content: patient denies wang icidal or homicidal ideation. There were no delusions reported or noted and denies any auditory or visual hallucinations. Attention and concentration are intact and memory appeared somewhat reliable but none were formally tested. He is alert and oriented times three. Insight is feeble. Judgment is limited. Impulse control is impaired. Vitals/I&O/Wt Last Vital Signs Temp 98.0 F 08/29/22 14:00 Pulse 71 08/29/22 14:00 Resp 16 08/29/22 14:00 BP 90/58 08/29/22 14:00 Pulse Ox 96 08/29/22 14:00 O2 Del Method Room Air 08/29/22 09:06 Weight last 48 hrs Weight 69.581 kg Data NPU 08/25/22 02:54 08/25/22 02:54 A&P Assessment and plan (1) Suicidal ideation: (2) Generalized anxiety disorder with panic attacks: (3) Depression: (4) Alcohol use disorder, severe, dependence: Plan This is a 62 year old white man with a significant history of trauma, nightmares, familial loss and suicide attempts and psychiatric hospitalizations who presents again with similar concerns as his 2021 hospitalization with relapse on alcohol and suicidal thoughts. 1. Continue Buspar, Gabapentin, and increase Effexor XR to 225mg daily. 2. Encourage individual, group and milieu therapy 3. Continue q-15 minute check for safety 4. Recommend sober living treatment at the highest level of care to which the patient is willing to commit. 5. Continue CIWA protocol-monitor for alcohol withdrawal symptoms. Involuntary Hold Information 96 Hour Hold: 96 Hour Involuntary Admission: Yes 96 Hour Hold Ending Date: 08/31/22 96 Hour Hold Ending Time: 07:00 Attestations NPU Medical Necessity Statement*: Inpatient hospitalization is medically necessary and the clinically appropriate intervention at this time. We will monitor medications and make changes as indicated. Likely length of stay is 1-2 days. Coding Level of Care Code Acute Code for g Fwd Diagnoses Suicidal ideation R45.851 Generalized anxiety disorder with panic attacks F41.1; F41.0 Depression F32.A Alcohol use disorder, severe, dependence F10.20
[2022-08-29 20:00] VITALS: PULSE 99; O2SAT 98
[2022-08-29] MEDS: zinc oxide oint 30 gm 1 APPLIC TOPICAL (20:45)
[2022-08-29 21:02] VITALS: BP 95/64; PULSE 79; RESP 18; TEMP 36.7; O2SAT 95
[2022-08-29] MEDS: trazodone 50 mg Tablet PO (23:21)
[2022-08-30 06:00] VITALS: BP 111/69; PULSE 69; RESP 18; O2SAT 97
[2022-08-30] MEDS: BuSPIRONE 10 mg Tablet 30 MG PO (08:01)
[2022-08-30] MEDS: calcium carb-vit d 600mg/400unit 1 Tablet 1 EACH PO (08:01)
[2022-08-30] MEDS: folic acid 1 mg Tablet PO (08:01)
[2022-08-30] MEDS: pantoprazole DR 40 mg Tablet PO (08:01)
[2022-08-30] MEDS: multivitamin therapeutic Tablet 1 TAB PO (08:01)
[2022-08-30] MEDS: venlafaxine ER (24HR) 75 mg Capsule 225 MG PO (08:01)
[2022-08-30] MEDS: propranolol 40 mg Tablet 120 MG PO (08:02)
[2022-08-30] MEDS: gabapentin 100 mg Capsule 200 MG PO ×2 (08:02→14:02)
[2022-08-30] MEDS: chlorhexidine gluconate 0.12% UDC 15 mL MUCOUS MEM (08:02)
[2022-08-30] MEDS: thiamine 100 mg Tablet PO (08:02)
[2022-08-30] MEDS: nicotine 21 mg Patch 1 PATCH TRANSDERMA (08:05)
[2022-08-30 08:46] VITALS: PULSE 75; RESP 18; O2SAT 98
[2022-08-30] MEDS: budesonide 0.5 mg/2 mL Neb INHALATION (08:46)
[2022-08-30 08:49] VITALS: O2SAT 98
[2022-08-30 08:54] VITALS: PULSE 78
[2022-08-30 14:00] VITALS: BP 112/75; PULSE 77; RESP 20; TEMP 36.9; O2SAT 98
[2022-08-30] MEDS: hyDROXYzine 25 mg Capsule 50 MG PO (14:03)
--- NOTE | 2022-08-30 14:04 | PC.NURSE ---
PRN VISTARIL 50 MG GIVEN PO PER PT C/O STATED ANXIETY
[2022-08-30 14:24] VITALS: PULSE 78
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
== END 2022-08-30 17:19 | disposition home or self-care (01) | DRG 880 ==
LOC: ER 07:27 → NP 12:11
PROVIDERS: Emergency Medicine; Admitting Provider Psychiatry & Neurology Psychiatry; Emergency Provider Emergency Medicine; PCP Family Medicine; Visit Provider Psychiatry & Neurology Psychiatry
DX: F41.1 Generalized anxiety disorder (principal); R45.851 Suicidal ideations; F41.0 Panic disorder [episodic paroxysmal anxiety]; F32.A Depression, unspecified; F10.20 Alcohol dependence, uncomplicated; F20.9 Schizophrenia, unspecified; F17.220 Nicotine dependence, chewing tobacco, uncomplicated; Z85.118 Personal history of other malignant neoplasm of bronchus and lung; Z62.811 Personal history of psychological abuse in childhood; Z62.810 Personal history of physical and sexual abuse in childhood; Z91.51 Personal history of suicidal behavior
CPT/HCPCS: 36415; 80053; 80306; 80307; 81003; 84443; 85025; 87426; 93005; 94640; 94664; 96372; 97165; 99238; 99285; J3411; J7626; Q0162

== ENCOUNTER 2023-08-22 20:22 | Emergency (ER) | payer OTHER, SELFPAY ==
[2023-08-22 20:23] VITALS: BP 144/100; PULSE 75; RESP 18; TEMP 36.7; O2SAT 98; BMI 23.6
--- NOTE | 2023-08-22 20:42 | XRR_ITS ---
PROCEDURE INFORMATION: Exam: XR Chest Exam date and time: 08/22/2023 8:50 PM Age: 63 years old Clinical indication: Screening exam; Other screening; Additional info: Psych xfer TECHNIQUE: Imaging protocol: Radiologic exam of the chest. Views: 1 view. COMPARISON: No relevant prior studies available. FINDINGS: Lungs: Unremarkable. No consolidation. Pleural spaces: Unremarkable. No pleural effusion. No pneumothorax. Heart/Mediastinum: Unremarkable. No cardiomegaly. Bones/joints: Right rotator cuff calcific tendinosis. Moderate degenerative disease of bilateral glenohumeral joints. Chronic fracture deformity of the left distal clavicle with no bony bridging. Chronic left 6th, 7th, 8th and 9th ribs fractures. Post ACDF of the lower cervical spine. XR/XR chest 1V portable [id number] IMPRESSION: No acute cardiopulmonary process.
--- NOTE | 2023-08-22 20:42 | ECG_ITS ---
[facility] Test Date: 2023-08-22 Pat Name: Lion Carvalho Department: Room: Gender: Male Orthotic Aide: : 1960 Requested By: Abbe Gonzalez Order Number: [id number] Meghan MD: Ariel Walter M.D. Measurements Intervals Perry Rate: 61 P: -32 MD: 123 QRS: 46 QRSD: 90 T: 70 QT: 432 QTc: 436 Interpretive Statements SINUS RHYTHM Compared to ECG 08/25/2022 02:53:20 No significant changes Electronically Signed On 08-23-2023 13:57:06 CDT by Ariel Walter M.D. [email or web address]
--- NOTE | 2023-08-22 20:43 | ED.C_ITS ---
Documented by User: AMBROSE Gupta 08/23/23 00:44 HPI - Psych 2 General: Chief Complaint: Psychiatric Symptoms Stated Complaint: SI Time Seen by Provider: 08/22/23 20:27 Source: patient Mode of arrival: EMS Limitations: no limitations History of Present Illness: Patient is a 63-year-old male presenting to the emergency department via ambulance complaining of suicidal ideations onset tonight. Patient notes history of similar, states he has actually tried to kill himself in the past by starving himself. His current plan is to slit his wrists in the bathtub and bleed out. He states he lives in a home with a female roommate and his mentally disabled son, and states he was going to tell them that he was taking a bath. He states that he has called before for suicidal ideations and has been hospitalized multiple times for psychiatric treatment. He states he is on all kinds of medications and denies any changes to this recently. He denies any homicidal ideations or auditory/visual hallucinations. He does note that at this time he is not having any thoughts of want to kill himself. When asked if he has been dealing with any significant life stressors recently, he states I just cannot take it anymore. He does not elaborate on any of his recent history. He states he drinks alcohol daily and takes THC Gummies, denies any other drug use. No other symptoms to note at this time. MD complaint: suicidal ideation Onset (ago): hour(s) Duration: resolved prior to arrival History of same: Yes Relieving factors: none Exacerbating factors: none Associated symptoms: Reports depression and suicidal ideation; Deny auditory hallucinations, visual hallucinations or homicidal ideation If self harm: admits thoughts of self harm and has plan Review of Systems 2 General: Reports: 10 or more systems reviewed and unremarkable except in HPI and below Const: Denies: fever(s), chills or fatigue Eyes: Denies: change in vision ENMT: Denies: throat pain, ear or mastoid pain or nasal discharge Card: Denies: chest pain, palpitations, swelling of feet/ankles or lightheadedness Resp: Denies: dyspnea, productive cough or wheezing GI: Denies: abdominal pain, nausea, vomiting, diarrhea or constipation : Denies: flank pain, difficulty urinating, dysuria or urinary frequency Musc: Denies: neck pain, back pain or joint pain Skin/Breast: Denies: rash Neuro: Denies: headache(s), numbness in extremities or weakness in extremities Psych: Reports: depression and suicidal ideation; Denies: visual hallucinations, auditory hallucinations or homicidal ideation Physical Exam 2 Const: COMMON NORMALS: no acute distress, patient oriented x3 and no limitations GENERAL APPEARANCE: cooperative, comfortable and well developed ORIENTATION/CONSCIOUSNESS: Yes awake, Yes oriented to person, Yes oriented to place and Yes oriented to time HENMT: COMMON NORMALS: normocephalic, atraumatic and hearing grossly normal bilaterally HEAD & SCALP: normocephalic and atraumatic Eye: COMMON NORMALS: Equal, round and reactive pupils present, EOMs intact bilaterally and conjunctivae normal CONJUNCTIVA: Yes conjunctivae normal P UPIL: Yes Equal, round and reactive pupils present Neck/C-Spine: COMMON NORMALS: full ROM, supple and no JVD Resp: COMMON NORMALS: normal respiratory effort, No retractions, No use of accessory muscles and clear to auscultation bilaterally AUSCULTATION: clear to auscultation bilaterally Cardio: COMMON NORMALS: no JVD, regular rate, regular rhythm, No clicks present (Cardio), No murmurs present (Cardio) and No rub (Cardio) RATE: r egular rate RHYTHM: regular rhythm GI: COMMON NORMALS: Normal to inspection, nondistended, normoactive bowel sounds present, Soft to palpation and non-tender AUSCULTATION: Yes normoactive bowel sounds PALPATION: Yes Soft to palpation RECTAL EXAM: Yes deferred Extremity: COMMON NORMALS: normal to inspection, full ROM and capillary refill normal Neuro: COMMON NORMALS: patient oriented x3, CN's II-XII intact bilaterally, moves all extremities, no focal motor deficits and no sensory deficits noted SENSORIUM/ORIENTATION: Yes oriented to person, Yes oriented to place and Yes oriented to time Psych: COMMON NORMALS: mental status grossly normal APPEARANCE: Yes unkempt and Yes disheveled ATTITUDE: Yes bizarre ACTIVITY/MOTOR BEHAVIOR: Yes psychomotor agitation SPEECH: Yes excessive MOOD & AFFECT: Yes euthymic mood THOUGHT PROCESS: disorganized THOUGHT CONTENT: Yes Normal thought content present ATTENTION/CONCENTRATION: Yes attention grossly intact Skin: COMMON NORMALS: no rashes or lesions noted GENERAL SKIN EXAM: no rashes or lesions noted Course 2 Vital Signs: Vital signs: Vital Signs Temperature 98.0 F 08/22/23 20:23 Pulse Rate 73 08/23/23 00:15 Respiratory Rate 28 H 08/23/23 00:15 Blood Pressure 121/82 08/23/23 00:15 Pulse Oximetry 95 08/23/23 00:15 Oxygen Delivery Me thod Room Air 08/22/23 20:23 MDM - Psych Medical Decision Making Sodium found to be low, given IV fluids to bring this up and otherwise patient cleared from a medical standpoint. He will be transferred to outpatient psychiatric facility due to lack of availability of beds in house. Lab Data 08/22/23 21:00 08/22/23 21:00 Radiology Impressions Chest X-Ray 08/22/23 20:42 IMPRESSION: No acute cardiopulmonary process. Laboratory Results WBC 8.42 10^3/uL (3.29-11.43) 08/22/23 21:00 RBC 4.18 10^6/uL (3.85-5.65) 08/22/23 21:00 Hgb 12.00 g/dL (11.27-16.99) 08/22/23 21:00 Hct 35.5 % (37-53) L 08/22/23 21:00 MCV 84.9 fl (82-101) 08/22/23 21:00 MCH 28.7 pg (27-33) 08/22/23 21:00 MCHC 33.8 g/dL (30-55) 08/22/23 21:00 RDW 16.2 % (12.1-15.1) H 08/22/23 21:00 Plt Count 270 10^3/cmm (157-399) 08/22/23 21:00 MPV 9.0 fL (7.4-10.4) 08/22/23 21:00 Neut % (Auto) 52.4 % 08/22/23 21:00 Lymph % (Auto) 25.4 % 08/22/23 21:00 Casey % (Auto) 12.6 % 08/22/23 21:00 Eos % (Auto) 7.1 % 08/22/23 21:00 Baso % (Auto) 1.2 % 08/22/23 21:00 Neut # (Auto) 4.41 10^3/uL (1.8-7.7) 08/22/23 21:00 Lymph # (Auto) 2.1 10^3/uL (0.8-4.8) 08/22/23 21:00 Casey # (Auto) 1.1 10^3/uL (0.2-0.9) H 08/22/23 21:00 Eos # (Auto) 0.6 10^3/uL (0.0-0.8) 08/22/23 21:00 Baso # (Auto) 0.1 10^3/uL (0.0-0.1) 08/22/23 21:00 Nucleated RBC % (auto) 0 % 08/22/23 21:00 Nucleated RBCs # 0.0 /100WBC 08/22/23 21:00 Sodium 129 mmol/L (136-145) L 08/22/23 21:00 Potassium 4.3 mmol/L (3.5-5.1) 08/22/23 21:00 Chloride 95 mmol/L (98-107) L 08/22/23 21:00 Carbon Dioxide 22 mmol/L (22-29) 08/22/23 21:00 Anion Gap 16.3 (5-19) 08/22/23 21:00 BUN 5 mg/dL (8-23) L 08/22/23 21:00 Creatinine 0.6 mg/dL (0.7-1.2) L 08/22/23 21:00 GFR Calculation 135.2 mL/min (90-130) H 08/22/23 21:00 Glucose 78 mg/dL (65-115) 08/22/23 21:00 Calculated Osmolality 264 mOsm/kg (285-295) L 08/22/23 21:00 Calcium 9.1 mg/dL (8.5-10.5) 08/22/23 21:00 Total Bilirubin 0.4 mg/dL (0.15-1.2) 08/22/23 21:00 AST 46 U/L (0-40) H 08/22/23 21:00 ALT 42 U/L (0-41) H 08/22/23 21:00 Alkaline Phosphatase 56 U/L (40-130) 08/22/23 21:00 Troponin T Baseline 9 ng/L (0-15) 08/22/23 21:00 Troponin T 120 Minute 9.27 ng/L (0-15) 08/22/23 22:50 Delta Troponin T 0.27 ABS# (0-10) 08/22/23 22:50 Total Protein 7.1 g/dL (6.6-8.7) 08/22/23 21:00 Albumin 4.2 g/dL (3.5-5.2) 08/22/23 21:00 Globulin 2.9 g/dL (1.3-4.6) 08/22/23 21:00 TSH 1.33 uIU/mL (0.27-4.20) 08/22/23 21:00 Urine Color Yellow (Yellow) 08/22/23 22:20 Urine Appearance Clear (CLEAR) 08/22/23 22:20 Urine pH 6.5 (5-7) 08/22/23 22:20 Ur Specific [place] 1.010 (1.005-1.030) 08/22/23 22:20 Urine Protein Neg (Negative) 08/22/23 22:20 Urine Glucose (UA) Norm (Normal) 08/22/23 22:20 Urine Ketones Negative (Negative) 08/22/23 22:20 Urine Blood Neg (Negative) 08/22/23 22:20 Urine Nitrate Negative (Negative) 08/22/23 22:20 Urine Bilirubin Neg (Negative) 08/22/23 22:20 Urine Urobilinogen Neg mg/dL (Negative) 08/22/23 22:20 Ur Leukocyte Esterase Negative (Negative) 08/22/23 22:20 Salicylates < 0.3 mg/dL (3-10) L 08/22/23 21:00 Urine Opiates Screen Negative ng/mL (Negative) 08/22/23 22:20 Acetaminophen < 5.0 ug/mL (10-30) L 08/22/23 21:00 Ur Barbiturates Screen Negative ng/mL (Negative) 08/22/23 22:20 Ur Phencyclidine Scrn Negative ng/mL (Negative) 08/22/23 22:20 Ur Amphetamines Screen Negative ng/mL (Negative) 08/22/23 22:20 U Benzodiazepines Scrn Negative ng/mL (Negative) 08/22/23 22:20 Urine Cocaine Screen Negative ng/mL (Negative) 08/22/23 22:20 U Marijuana (THC) Screen Positive ng/mL (Negative) H 08/22/23 22:20 Ethyl Alcohol 110 mg/dL (0-10) H 08/22/23 21:00 Adenovirus (PCR) Not detected (NOT DETECT) 08/22/23 21:01 C. pneumoniae DNA (PCR) Not detected (NOT DETECT) 08/22/23 21:01 Coronavirus 229E (PCR) Not detected (NOT DETECT) 08/22/23 21:01 Human Metapneumovir PCR Not detected (NOT DETECT) 08/22/23 21:01 Influenza A (H1) PCR Not detected (NOT DETECT) 08/22/23 21:01 Influ A (H1/09) PCR Not detected (NOT DETECT) 08/22/23 21:01 Influenza A (H3) PCR Not detected (NOT DETECT) 08/22/23 21:01 Influenza Type A (PCR) Not detected (NOT DETECT) 08/22/23 21:01 Influenza Type B (PCR) Not detected (NOT DETECT) 08/22/23 21:01 M. pneumoniae (PCR) Not detected (NOT DETECT) 08/22/23 21:01 Parainfluenza 1 (PCR) Not detected (NOT DETECT) 08/22/23 21:01 Parainfluenza 2 (PCR) Not detected (NOT DETECT) 08/22/23 21:01 Parainfluenza 3 (PCR) Not detected (NOT DETECT) 08/22/23 21:01 Parainfluenza 4 (PCR) Not detected (NOT DETECT) 08/22/23 21:01 RSV Type A (PCR) Not detected (NOT DETECT) 08/22/23 21:01 RSV Type B (PCR) Not detected (NOT DETECT) 08/22/23 21:01 Entero/Rhino (PCR) Not detected (NOT DETECT) 08/22/23 21:01 SARS-CoV-2 (PCR) Not detected (NOT DETECT) 08/22/23 21:01 Discharge Plan Discharge Patient Disposition: Xfer Psychiatric Hosp Clinical Impression: Suicidal ideation Condition: Stable Referrals: Abbe Talamantes [Primary Care Provider] - Coding Level of Care Code ED Electroencephalographic Technologist for Chg Fwd Documented by User: Shaista Solano MD 08/23/23 18:49 HPI - Psych 2 General: Chief Complaint: Psychiatric Symptoms Stated Complaint: SI Time Seen by Provider: 08/22/23 20:27 Course 2 Vital Signs: Vital signs: Vital Signs Temperature 98.0 F 08/22/23 20:23 Pulse Rate 73 08/23/23 00:15 Respiratory Rate 28 H 08/23/23 00:15 Blood Pressure 121/82 08/23/23 00:15 Pulse Oximetry 95 08/23/23 00:15 Oxygen Delivery Me thod Room Air 08/22/23 20:23 MDM - Psych Medical Decision Making Sodium found to be low, given IV fluids to bring this up and otherwise patient cleared from a medical standpoint. He will be transferred to outpatient psychiatric facility due to lack of availability of beds in house. Patient accepted to psychiatric facility in [place]. [facility] was [facility] [place] to [facility] at [facility]. Patient will not be transferred till this morning. Lab Data 08/22/23 21:00 08/22/23 21:00 Radiology Impressions Chest X-Ray 08/22/23 20:42 IMPRESSION: No acute cardiopulmonary process. Laboratory Results WBC 8.42 10^3/uL (3.29-11.43) 08/22/23 21:00 RBC 4.18 10^6/uL (3.85-5.65) 08/22/23 21:00 Hgb 12.00 g/dL (11.27-16.99) 08/22/23 21:00 Hct 35.5 % (37-53) L 08/22/23 21:00 MCV 84.9 fl (82-101) 08/22/23 21:00 MCH 28.7 pg (27-33) 08/22/23 21:00 MCHC 33.8 g/dL (30-55) 08/22/23 21:00 RDW 16.2 % (12.1-15.1) H 08/22/23 21:00 Plt Count 270 10^3/cmm (157-399) 08/22/23 21:00 MPV 9.0 fL (7.4-10.4) 08/22/23 21:00 Neut % (Auto) 52.4 % 08/22/23 21:00 Lymph % (Auto) 25.4 % 08/22/23 21:00 Casey % (Auto) 12.6 % 08/22/23 21:00 Eos % (Auto) 7.1 % 08/22/23 21:00 Baso % (Auto) 1.2 % 08/22/23 21:00 Neut # (Auto) 4.41 10^3/uL (1.8-7.7) 08/22/23 21:00 Lymph # (Auto) 2.1 10^3/uL (0.8-4.8) 08/22/23 21:00 Casey # (Auto) 1.1 10^3/uL (0.2-0.9) H 08/22/23 21:00 Eos # (Auto) 0.6 10^3/uL (0.0-0.8) 08/22/23 21:00 Baso # (Auto) 0.1 10^3/uL (0.0-0.1) 08/22/23 21:00 Nucleated RBC % (auto) 0 % 08/22/23 21:00 Nucleated RBCs # 0.0 /100WBC 08/22/23 21:00 Sodium 129 mmol/L (136-145) L 08/22/23 21:00 Potassium 4.3 mmol/L (3.5-5.1) 08/22/23 21:00 Chloride 95 mmol/L (98-107) L 08/22/23 21:00 Carbon Dioxide 22 mmol/L (22-29) 08/22/23 21:00 Anion Gap 16.3 (5-19) 08/22/23 21:00 BUN 5 mg/dL (8-23) L 08/22/23 21:00 Creatinine 0.6 mg/dL (0.7-1.2) L 08/22/23 21:00 GFR Calculation 135.2 mL/min (90-130) H 08/22/23 21:00 Glucose 78 mg/dL (65-115) 08/22/23 21:00 Calculated Osmolality 264 mOsm/kg (285-295) L 08/22/23 21:00 Calcium 9.1 mg/dL (8.5-10.5) 08/22/23 21:00 Total Bilirubin 0.4 mg/dL (0.15-1.2) 08/22/23 21:00 AST 46 U/L (0-40) H 08/22/23 21:00 ALT 42 U/L (0-41) H 08/22/23 21:00 Alkaline Phosphatase 56 U/L (40-130) 08/22/23 21:00 Troponin T Baseline 9 ng/L (0-15) 08/22/23 21:00 Troponin T 120 Minute 9.27 ng/L (0-15) 08/22/23 22:50 Delta Troponin T 0.27 ABS# (0-10) 08/22/23 22:50 Total Protein 7.1 g/dL (6.6-8.7) 08/22/23 21:00 Albumin 4.2 g/dL (3.5-5.2) 08/22/23 21:00 Globulin 2.9 g/dL (1.3-4.6) 08/22/23 21:00 TSH 1.33 uIU/mL (0.27-4.20) 08/22/23 21:00 Urine Color Yellow (Yellow) 08/22/23 22:20 Urine Appearance Clear (CLEAR) 08/22/23 22:20 Urine pH 6.5 (5-7) 08/22/23 22:20 Ur Specific [place] 1.010 (1.005-1.030) 08/22/23 22:20 Urine Protein Neg (Negative) 08/22/23 22:20 Urine Glucose (UA) Norm (Normal) 08/22/23 22:20 Urine Ketones Negative (Negative) 08/22/23 22:20 Urine Blood Neg (Negative) 08/22/23 22:20 Urine Nitrate Negative (Negative) 08/22/23 22:20 Urine Bilirubin Neg (Negative) 08/22/23 22:20 Urine Urobilinogen Neg mg/dL (Negative) 08/22/23 22:20 Ur Leukocyte Esterase Negative (Negative) 08/22/23 22:20 Salicylates < 0.3 mg/dL (3-10) L 08/22/23 21:00 Urine Opiates Screen Negative ng/mL (Negative) 08/22/23 22:20 Acetaminophen < 5.0 ug/mL (10-30) L 08/22/23 21:00 Ur Barbiturates Screen Negative ng/mL (Negative) 08/22/23 22:20 Ur Phencyclidine Scrn Negative ng/mL (Negative) 08/22/23 22:20 Ur Amphetamines Screen Negative ng/mL (Negative) 08/22/23 22:20 U Benzodiazepines Scrn Negative ng/mL (Negative) 08/22/23 22:20 Urine Cocaine Screen Negative ng/mL (Negative) 08/22/23 22:20 U Marijuana (THC) Screen Positive ng/mL (Negative) H 08/22/23 22:20 Ethyl Alcohol 110 mg/dL (0-10) H 08/22/23 21:00 Adenovirus (PCR) Not detected (NOT DETECT) 08/22/23 21:01 C. pneumoniae DNA (PCR) Not detected (NOT DETECT) 08/22/23 21:01 Coronavirus 229E (PCR) Not detected (NOT DETECT) 08/22/23 21:01 Human Metapneumovir PCR Not detected (NOT DETECT) 08/22/23 21:01 Influenza A (H1) PCR Not detected (NOT DETECT) 08/22/23 21:01 Influ A (H1/09) PCR Not detected (NOT DETECT) 08/22/23 21:01 Influenza A (H3) PCR Not detected (NOT DETECT) 08/22/23 21:01 Influenza Type A (PCR) Not detected (NOT DETECT) 08/22/23 21:01 Influenza Type B (PCR) Not detected (NOT DETECT) 08/22/23 21:01 M. pneumoniae (PCR) Not detected (NOT DETECT) 08/22/23 21:01 Parainfluenza 1 (PCR) Not detected (NOT DETECT) 08/22/23 21:01 Parainfluenza 2 (PCR) Not detected (NOT DETECT) 08/22/23 21:01 Parainfluenza 3 (PCR) Not detected (NOT DETECT) 08/22/23 21:01 Parainfluenza 4 (PCR) Not detected (NOT DETECT) 08/22/23 21:01 RSV Type A (PCR) Not detected (NOT DETECT) 08/22/23 21:01 RSV Type B (PCR) Not detected (NOT DETECT) 08/22/23 21:01 Entero/Rhino (PCR) Not detected (NOT DETECT) 08/22/23 21:01 SARS-CoV-2 (PCR) Not detected (NOT DETECT) 08/22/23 21:01 No radiology studies performed this visit Discharge Plan Discharge Patient Disposition: Xfer Psychiatric Hosp Clinical Impression: Suicidal ideation Condition: Stable Referrals: Abbe Talamantes [Primary Care Provider] - Coding Level of Care Code ED Electroencephalographic Technologist for [place]
[2023-08-22 21:12] LABS: Basophils # 0.1 10^3/uL (0.0-0.1); Basophils % 1.2 %; Eosinophils # 0.6 10^3/uL (0.0-0.8); Eosinophils % 7.1 %; Hematocrit 35.5 % (37-53); Lymphocytes # 2.1 10^3/uL (0.8-4.8); Lymphocytes % 25.4 %; Mean Corpuscular HGB Conc 33.8 g/dL (30-55); Mean Corpuscular Hemoglobin 28.7 pg (27-33); Mean Corpuscular Volume 84.9 fl (82-101); Monocytes # 1.1 10^3/uL (0.2-0.9); Monocytes % 12.6 %; Neutrophils # 4.41 10^3/uL (1.8-7.7); Neutrophils % 52.4 %; Nucleated Red Blood Cells % 0 %; Platelet Count 270 10^3/cmm (157-399); Red Blood Count 4.18 10^6/uL (3.85-5.65); Red Cell Distribution Width 16.2 % (12.1-15.1); White Blood Count 8.42 10^3/uL (3.29-11.43)
[2023-08-22 21:31] LABS: Troponin(5th) Baseline 9 ng/L (0-15)
[2023-08-22 21:41] LABS: Alanine Aminotransferase 42 U/L (0-41); Albumin Level 4.2 g/dL (3.5-5.2); Alcohol Level 110 mg/dL (0-10); Alkaline Phosphatase 56 U/L (40-130); Anion Gap 16.3 (5-19); Aspartate Amino Transferase 46 U/L (0-40); Blood Urea Nitrogen 5 mg/dL (8-23); Calcium 9.1 mg/dL (8.5-10.5); Carbon Dioxide 22 mmol/L (22-29); Chloride 95 mmol/L (98-107); Creatinine Clr Calc Pharmacy 93.0339; Globulin 2.9 g/dL (1.3-4.6); Glomerular Filtration Rate 135.2 mL/min (90-130); Glucose 78 mg/dL (65-115); Osmolality Calculated 264 mOsm/kg (285-295); Potassium 4.3 mmol/L (3.5-5.1); Sodium 129 mmol/L (136-145); Thyroid Stimulating Hormone 1.33 uIU/mL (0.27-4.20); Total Protein 7.1 g/dL (6.6-8.7)
[2023-08-22 21:45] LABS: Total Bilirubin 0.4 mg/dL (0.15-1.2)
[2023-08-22 21:50] LABS: Acetaminophen < 5.0 ug/mL (10-30); Salicylate < 0.3 mg/dL (3-10)
[2023-08-22 22:40] LABS: Add Urine Microscopic? NO; Charge for UA Resulting for Rev
[2023-08-22 22:43] LABS: Bilirubin Urine Neg (Negative); Blood Urine Neg (Negative); Glucose Urine UA Norm (Normal); Ketones Urine Negative (Negative); Leukocyte Esterase Urine Negative (Negative); Nitrate Urine Negative (Negative); Protein Urine Neg (Negative); Urine Appearance Clear (CLEAR); Urine Color Yellow (Yellow); Urobilinogen Urine Neg (Negative); pH Urine 6.5 (5-7)
[2023-08-22] MEDS: sodium chloride 0.9% 1,000 ML 999 ML IV (22:46)
[2023-08-22 22:50] LABS: Adenovirus Not Detected (NOT DETECT); Chlamydia Pneumoniae Not Detected (NOT DETECT); Coronavirus 229E,HKU1,NL63,OC4 Not Detected (NOT DETECT); Human Metapneumovirus Not Detected (NOT DETECT); Human Rhinovirus/Enterovirus Not Detected (NOT DETECT); Influenza A Not Detected (NOT DETECT); Influenza A H1 Not Detected (NOT DETECT); Influenza A H1-2009 Not Detected (NOT DETECT); Influenza A H3 Not Detected (NOT DETECT); Influenza B Not Detected (NOT DETECT); Mycoplasma Pneumoniae Not Detected (NOT DETECT); Parainfluenza Virus Type 1 Not Detected (NOT DETECT); Parainfluenza Virus Type 2 Not Detected (NOT DETECT); Parainfluenza Virus Type 3 Not Detected (NOT DETECT); Parainfluenza Virus Type 4 Not Detected (NOT DETECT); Respiratory Syncytial Virus A Not Detected (NOT DETECT); Respiratory Syncytial Virus B Not Detected (NOT DETECT); SARS-COV-2 Not Detected (NOT DETECT)
[2023-08-22 22:51] LABS: Amphetamines Screen Urine Negative (Negative); Barbiturates Screen Urine Negative (Negative); Benzodiazepines Screen Urine Negative (Negative); Cocaine Screen Urine Negative (Negative); Opiate Screen Urine Negative (Negative); PCP Screen Urine Negative (Negative); THC Screen Urine Positive (Negative)
[2023-08-22 23:12] LABS: Troponin 5 2HR 9.27 ng/L (0-15); Troponin 5 2HR Delta 0.27 ABS# (0-10)
--- NOTE | 2023-08-22 23:14 | ECG_ITS ---
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 Measurements Intervals [place] Rate: 64 P: 40 MT: 174 QRS: 67 QRSD: 89 T: 72 QT: 421 QTc: 437 Interpretive Statements SINUS RHYTHM Compared to ECG 08/22/2023 20:49:03 No significant changes Electronically Signed On 08-23-2023 13:57:03 CDT by Ariel Walter M.D. [email or web address] [email or web address] [email or web address] Research, LLCselect medical specialty hospital - youngstownJ [employer]/[id number]
[2023-08-22 23:45] VITALS: BP 123/80; PULSE 78; RESP 26; O2SAT 96
[2023-08-23 00:15] VITALS: BP 121/82; PULSE 73; RESP 28; O2SAT 95
--- NOTE | 2023-08-23 07:24 | PC.PHAR ---
[facility] L[facility] 7:24AM 08/23/23
[2023-08-23] MEDS: OLANZapine 10 mg TABLET PO (08:13)
== END 2023-08-23 08:54 ==
PROVIDERS: Physician Assistant; Emergency Provider Emergency Medicine; PCP Family Medicine
DX: R45.851 Suicidal ideations (principal); Z11.52 Encounter for screening for COVID-19
CPT/HCPCS: 36415; 71045; 80053; 80306; 80307; 81003; 84443; 84484; 85025; 87486; 87581; 87633; 93005; 96360; 99285; J7030